=== PATIENT | male | born 1955 | race Caucasian/White ===

== ENCOUNTER 2024-04-20 15:20 | Outpatient (AMB) | payer OTHER, SELFPAY ==
[2024-04-20 15:27] VITALS: BP 112/66; PULSE 95; O2SAT 98; BMI 37.0
--- NOTE | 2024-04-20 15:27 | A.OFFPC_ITS ---
Vital Signs 04/20/24 15:27 Height 6 ft Weight 273 lb 2 oz BMI 37.0 BP 112/66 Blood Pressure Location Rt brachial Position Sitting Pulse 95 Pulse Source Pulse Oximeter Pulse Oximetry (%) 98 Oxygen Delivery Method Room Air Intake Visit Reasons: REVIEW COORDINATOR/Requesting physical Allergies No Known Allergies Allergy (Verified 04/20/24 15:30) Medication List - Last Reconciled 04/20/24 by WILSON Garcia- acetaminophen (Tylenol) 650 mg PO Q6H PRN amiodarone 200 mg PO DAILY apixaban (Eliquis) 5 mg PO BID aspirin 81 mg PO DAILY atorvastatin 80 mg PO DAILY empagliflozin (Jardiance) 10 mg PO DAILY furosemide 40 mg PO DAILY losartan 25 mg PO DAILY magnesium aspartate HCl mg PO metoprolol succinate ER 12.5 mg PO DAILY spironolactone 25 mg PO DAILY Tobacco use date assessed: 04/20/24 Fall risk assessment: 1 Fall in past year Last assessed Fall Risk: 04/20/24 Dental Screening Dental Screen Date: 04/20/24 Did you have a dental visit in the last 12 months?: No Did you have a dental problem in the last 6 months where you did not have access to dental care?: No Was dental information given to patient?: No HPI REVIEW COORDINATOR/Requesting physical HPI Details New pt is here to establish care. Pt currently has a wound vac to his left foot that is managed through a facility. He has antibiotics through his PICC line. Pt has wound vac dressing changes as well. He is seeing his surgeon tomorrow. Pt was found to have a large left supraclavicular mass. He needs a referral to oncology for further workup/PET scans/etc, will refer to requested provider. Denies dysphagia, SOB, CP. Pt also has a hx of CABG x4. 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 Pt is from the [facility] area. Pt reports never having a colon screen, will order cologuard. Pt does have a family hx of colon cancer (father). Pt is a diabetic, on an ARB and a statin. A1C in office today is 6.2. Due for microalbumin. Denies polyuria, polydipsia, does report intermittent neuropathy. Pt denies any signs and symptoms of hypoglycemia and does know how to correct it. Will refer to podiatry. Due for PSA, will order. Denies dribbling with urination, weak stream, and frequent nocturia. [facility] Social History Housing: House Patient Tobacco Use Status: Never used Tobacco e-Cigarette/Vaping Use: Never Used service: No Current occupational status: unemployed Cognitive needs: No Hearing needs: No Vision needs: Yes Questionnaire PHQ-9 Over the last 2 weeks, how often have you been bothered by any of the following problems? 1. Little interest or pleasure in doing things: not at all 2. Feeling down, depressed, or hopeless: not at all 3. Trouble falling or staying asleep, or sleeping too much: not at all 4. Feeling tired or having little energy: several days 5. Poor appetite or overeating: not at all 6. Feeling bad about yourself - or that you are a failure or have let yourself or your family down: not at all 7. Trouble concentrating on things, such as reading the newspaper or watching television: not at all 8. Moving or speaking so slowly that other people could have noticed. Or the opposite - being so fidgety or restless that you have been moving around a lot more than usual: not at all 9. Thoughts that you would be better off or of hurting yourself in some way: not at all Total score: 1 Depression Screening Interpretation: Negative Depression Screening Done: Yes 16511 - PHQ-9 Billing: Yes Source: Developed by Drs. Noel Dye, Mehreen Gandhi, Uriel Stephens and colleagues, with an educational lore from [employer]. Thrive Questionnaire Date Thrive assessed: 04/20/24 I am a: Patient What is your living situation today?: I have a steady place to live Within the past 12 months, did the food you bought not last and you didn't have the money to get more?: Never true Within the past 12 months, did you worry whether your food would run out before you got money to buy more?: Never true Do you have trouble paying for medicines?: No Do you have trouble getting transportation to medical appointments?: No Do you have trouble paying your heating and electricity bill?: No Do you have trouble taking care of your child, family member or friend?: No Do you have trouble with day-to-day activities such as bathing, preparing meals, shopping, managing finances, etc.?: No Are you currently unemployed and looking for a job?: No Are you interested in more education?: No Please select the resources that you would like help with: Housing/Assisted and Transportation Currently or been in a relationship where the following occur: No concerns reported THRIVE Score: 0 AUDIT C Alcohol Use Questionnaire (AUDIT-C) 1. How often do you have a drink containing alcohol?: 2-4 times a month 2. How many drinks containing alcohol do you have on a typical day when you are drinking?: 3 or 4 3. How often do you have six or more drinks on one occasion?: Never Total Score: 3 Score Reviewed/Action Taken: Yes MAIKEL-7 AMB Questionnaire MAIKEL-7 Date MAIKEL - 7 assessed: 04/20/24 Feeling nervous, anxious, or on edge: 0 = Not at all Not being able to stop or control worryin = Not at all Worrying too much about different things: 0 = Not at all Trouble relaxin = Not at all Being so restless that it is hard to sit still: 0 = Not at all Becoming easily annoyed or irritable: 0 = Not at all Feeling afraid as if something awful might happen: 0 = Not at all Total MAIKEL-7 score (0-4 normal; 5-9 mild; 10-14 moderate; 15-21 severe): 0 Source: Developed by Drs. Noel Dye, Mehreen Gandhi, Uriel Stephens and colleagues, with an educational lore from [employer]. MAIKEL-7 Assessment Billing MAIKEL-7 Assessment Tool: MAIKEL-7 Assessment 94792 Review of Systems Const Reports as per HPI Physical exam (Primary Care) Vital Signs: Last Vital Signs Pulse 95 04/20/24 15:27 BP 112/66 04/20/24 15:27 Pulse Ox 98 04/20/24 15:27 Oxygen Delivery Method Room Air 04/20/24 15:27 BMI result Body Mass Index 37.0 Tobacco/Smoking Status: Tobacco use Status Tobacco use date assessed 04/20/24 04/20/24 15:37 Patient Tobacco Use Status Never used Tobacco 04/20/24 15:37 e-Cigarette/Vaping Use Never Used 04/20/24 15:37 PHQ-9: PHQ-9 Score PHQ-9: Total score 1 04/20/24 15:52 Depression Screening Interpretation: Negative Thrive Assessment: Date of Thrive Assessment Date Thrive assessed 04/20/24 04/20/24 15:37 Currently or been in a relationship where the following occur: No concerns reported Const General: cooperative Nutritional Appearance: obese Orientation/consciousness: patient oriented x3 Neck Other: large indurated mass from left anterior neck to supraclavicular region. Nontender with touch Resp Other: lungs fairly clear Effort & Inspection: normal respiratory effort Cardio Rate: regular rate Rhythm: regular rhythm Heart sounds: S1 normal heart sound present, S2 normal heart sound present and Murmur heart sound present systolic (faint) Neuro General: patient oriented x3 Extrem Other: wound vac to left foot draining SS drainage, amputated right 1st and 5th toes, weak right dorsalis pedis pulse, onychomycosis to right foot, + sensation with use of monofilament to right foot, dressing to RUE PICC Psych Appearance: grossly normal Mental Status: mental status grossly normal Speech and movement: Normal speech and movement present Affect: normal affect Attitude: cooperative Thought process: Normal thought process present Thought content: Normal thought content present Insight: Good insight present (Psych) Judgement: Good judgement present (Psych) Assessment and Plan Assessment & Plan (1) Supraclavicular mass: Code(s): R22.2 - Localized swelling, mass and lump, trunk Plan: Referred to oncology (2) S/P CABG x 4: Code(s): Z95.1 - Presence of aortocoronary bypass graft Plan: Referred to cardiology (3) Diabetes: Code(s): E11.9 - Type 2 diabetes mellitus without complications Plan The patient agreed to the use of a neuropsychology medical consultant for this encounter. Scribed for ISABEL Doyle by Dana Coronel neuropsychology medical consultant, on 04/20/2024 at 15:55 EST. Orders: Orders Complete Blood Count Auto Diff Today Z95.1 - Presence of aortocoronary bypass graft UA CC w/rflx Micro + Cult Today Z95.1 - Presence of aortocoronary bypass graft Comprehensive [place]. Panel Fast Today Z95.1 - Presence of aortocoronary bypass graft TSH reflex Free T4 Today Z95.1 - Presence of aortocoronary bypass graft Lipid Panel Today Z95.1 - Presence of aortocoronary bypass graft Prostate Specific Antigen Scr Today Z95.1 - Presence of aortocoronary bypass graft Referrals Hematology & Oncology Referral R22.2 - Localized swelling, mass and lump, trunk Cardiology Referral Z95.1 - Presence of aortocoronary bypass graft Cologuard Test Z12.11 - Encounter for screening for malignant neoplasm of colon, Z12.12 - Encounter for screening for malignant neoplasm of rectum Podiatry Referral E11.9 - Type 2 diabetes mellitus without complications Coding Level of Care Code New Pt Level 4 (40873) Diagnoses Supraclavicular mass R22.2 S/P CABG x 4 Z95.1 Diabetes E11.9 Additional Codes MAIKEL-7 Assessment Billing - MAIKEL-7 Assessment Tool: MAIKEL-7 Assessment 95406 ([id number])
== END 2024-04-20 16:36 | disposition home or self-care (01) ==
PROVIDERS: PCP Nurse Practitioner Family; Visit Provider Nurse Practitioner Family
DX: R22.2 Localized swelling, mass and lump, trunk (principal); Z95.1 Presence of aortocoronary bypass graft; E11.9 Type 2 diabetes mellitus without complications
CPT/HCPCS: 99204

== ENCOUNTER → 2024-05-12 14:02 | Outpatient (BNV) | payer OTHER, SELFPAY | PROVIDERS: PCP Nurse Practitioner Family; Referring Provider Nurse Practitioner Family; Visit Provider Internal Medicine | DX: C76.0 Malignant neoplasm of head, face and neck (principal) | CPT/HCPCS: 99204 ==

== ENCOUNTER 2025-02-08 12:12 | Outpatient (AMB) | payer MEDICARE, MEDICAID, SELFPAY ==
--- NOTE | 2025-02-08 12:15 | A.OFFPC_ITS ---
Vital Signs 02/08/25 12:16 Height 6 ft Weight 183 lb BMI 24.8 BP 102/68 Blood Pressure Location Rt brachial Position Sitting Respiration 18 Pulse 71 Pulse Source Pulse Oximeter Temp 97.5 F Temp Source Oral Pulse Oximetry (%) 98 Oxygen Delivery Method Room Air Intake Visit Reasons: cancer diagnosed Intake Note: Pt is here today for a follow up visit. Allergies No Known Allergies Allergy (Verified 02/08/25 12:16) Tobacco use date assessed: 02/08/25 Fall risk assessment: No Falls in past year Last assessed Fall Risk: 02/08/25 Dental Screening Dental Screen Date: 04/20/24 Did you have a dental visit in the last 12 months?: No Did you have a dental problem in the last 6 months where you did not have access to dental care?: No Was dental information given to patient?: Patient has dentist HPI cancer diagnosed HPI Details Chief Complaint Follow-up for management of radiation therapy and related skin changes. 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 Recent treatment has included chemo-radiation therapy, resulting in dermatitis/burn over the left side of the neck and extending to the anterior chest. The patient undergoes regular wound care to manage radiation skin changes and reports his blood pressure is stable, within a low-normal range. He denies any acute symptoms such as dyspnea or chest discomfort, and maintains he feels quite well despite notable weight loss linked to dietary adjustment post- diagnosis. The patient has severe onychomycosis on the right foot, with elongated nails and dryness; he also has prior amputations of toes one and five on his left foot. Continued podiatric care and an eye exam referral were discussed. Social History - Accompanied by sister today. Health Maintenance - Regular wound care for radiation derma titis - Ongoing blood pressure management with cvir tech - Encouraged laboratory evaluation with future fasting labs recommended - Referral for podiatric evaluation due to onychomycosis and toenail issues - Referral for ophthalmologic evaluation Review of Systems - General: Denies fever, chills - Cardiovascular: Denies chest pain - Respiratory: Denies shortness of breat h - Neurological: Denies dizziness, headac hes - Gastrointestinal: Denies abdominal ameya n Physical Exam General: Cooperative, healthy appearing, comfortable, no acute distress and well developed Orientation: Patient oriented x3 Limitations: No limitations Head: Normal to inspection Ears: Hearing grossly normal bilaterally Nose: Normal external nose present Face and sinus: Normal facial exam Eyes: Appearance normal, both eyes and all related structures Neck: Burn to the left side of neck going down to left anterior chest, large bulky bandage clean, dry and intact Respiratory: Slightly diminished, lungs fairly clear, able to speak in complete sentences Cardiovascular: Regular rate and rhythm. Soft S1 and S2 GI: Normal to inspection. Soft to palpation and nontender Skin: Burn to the left side of neck going down to left anterior chest. Neuro: Patient oriented x3 Extremities: Severe onychomycosis noted to right side with elongated toenails, very dry feet bilaterally, left foot with amputated toes number five and number one, sensation with monofilament present Results - Labs: A1c measured at 4.7 Plan The patient will continue regular oncology follow-ups for carcinoma management and wound center care for addressing radiation dermatitis. There will be no alteration to his hypertension management plan. An appointment with a recording artist is warranted for the right foot's onychomycosis. The bandage on his dermatitis- affected area will be kept clean, dry, and intact. The importance of nutritional monitoring through protein shakes due to prior weight loss was discussed. An social insurance specialist will be involved for general health monitoring, especially in light of recent treatment and health changes. Discussion Notes I discussed with the patient the current status of his cancer treatment and the necessity to continue regular follow-up with the oncology team. We deliberated on the advantages and expectations from continued wound care to manage the radiation dermatitis. I emphasized maintaining his current hypertension medication regimen due to its effectiveness. Our conversation covered the seriousness of the onychomycosis and the importance of seeing a recording artist. Nutritional advice focused on the continued intake of protein shakes to manage significant weight loss. The referral to an social insurance specialist is intended to ensure comprehensive health care follow-up. The patient understands the plan and consents to the outlined management strategy. Patient Instructions - Continue follow-ups with the oncology team. - Keep the radiation dermatitis bandage clean and dry. - Maintain current blood pressure medica tions. - Visit a recording artist for toenail and tish t care. - Schedule an eye exam. - Follow nutritional recommendations, in cluding protein shakes. - Monitor overall health closely. [facility], [facility] Medical History Wound of right buttock Pressure ulcer of buttock Localized swelling, mass and lump, neck Gastro-esophageal reflux disease without esophagitis extermination inspector (current) use of insulin Unspecified atrial fibrillation Chronic systolic (congestive) heart failure Atherosclerotic heart disease of [place] coronary artery without angina pectoris Morbid (severe) obesity due to excess calories Osteomyelitis Surgical History Other specified postprocedural states Presence of aortocoronary bypass graft Kidney transplant status Family History Father Colon cancer Social History Household Members: Family Housing: House Patient Tobacco Use Status: Former Tobacco user Tobacco use type: Cigarette and Cigar e-Cigarette/Vaping Use: Never Used service: No Current occupational status: unemployed and retired Gender identity: Male Cognitive needs: No Hearing needs: No Vision needs: Yes Questionnaire PHQ-9 Over the last 2 weeks, how often have you been bothered by any of the following problems? 1. Little interest or pleasure in doing things: not at all 2. Feeling down, depressed, or hopeless: not at all 3. Trouble falling or staying asleep, or sleeping too much: not at all 4. Feeling tired or having little energy: not at all 5. Poor appetite or overeating: not at all 6. Feeling bad about yourself - or that you are a failure or have let yourself or your family down: not at all 7. Trouble concentrating on things, such as reading the newspaper or watching television: not at all 8. Moving or speaking so slowly that other people could have noticed. Or the opposite - being so fidgety or restless that you have been moving around a lot more than usual: not at all 9. Thoughts that you would be better off or of hurting yourself in some way: not at all Total score: 0 Depression Screening Interpretation: Negative Depression Screening Done: Yes 56126 - PHQ-9 Billing: Yes Source: Developed by Mehreen Douglas.W. Hiram, Uriel Stephens and colleagues, with an educational lore from [employer]. Thrive Questionnaire Date Thrive assessed: 02/08/25 I am a: Patient What is your living situation today?: I have a steady place to live Within the past 12 months, did the food you bought not last and you didn't have the money to get more?: Never true Within the past 12 months, did you worry whether your food would run out before you got money to buy more?: Sometimes True Do you have trouble paying for medicines?: No Do you have trouble getting transportation to medical appointments?: Yes Do you have trouble paying your heating and electricity bill?: No Do you have trouble taking care of your child, family member or friend?: No Do you have trouble with day-to-day activities such as bathing, preparing meals, shopping, managing finances, etc.?: Yes Are you currently unemployed and looking for a job?: No Are you interested in more education?: No Please select the resources that you would like help with: Transportation Currently or been in a relationship where the following occur: I choose not to answer THRIVE Score: 2 AUDIT C Alcohol Use Questionnaire (AUDIT-C) 1. How often do you have a drink containing alcohol?: 2-4 times a month 2. How many drinks containing alcohol do you have on a typical day when you are drinking?: 1 or 2 3. How often do you have six or more drinks on one occasion?: Never Total Score: 2 MAIKEL-7 AMB Questionnaire MAIKEL-7 Date MAIKEL - 7 assessed: 02/08/25 Feeling nervous, anxious, or on edge: 0 = Not at all Not being able to stop or control worryin = Not at all Worrying too much about different things: 0 = Not at all Trouble relaxin = Several days Being so restless that it is hard to sit still: 0 = Not at all Becoming easily annoyed or irritable: 0 = Not at all Feeling afraid as if something awful might happen: 0 = Not at all Total MAIKEL-7 score (0-4 normal; 5-9 mild; 10-14 moderate; 15-21 severe): 1 Source: Developed by Drs. Noel Dye, Mehreen GandhiUriel and colleagues, with an educational lore from [employer]. MAIKEL-7 Assessment Billing MAIKEL-7 Assessment Tool: MAIKEL-7 Assessment 87053 Physical exam (Primary Care) Vital Signs: Last Vital Signs Temp 97.5 F 02/08/25 12:16 Pulse 71 02/08/25 12:16 Resp 18 02/08/25 12:16 BP 102/68 02/08/25 12:16 Pulse Ox 98 02/08/25 12:16 Oxygen Delivery Method Room Air 02/08/25 12:16 BMI result Body Mass Index 24.8 Tobacco/Smoking Status: Tobacco use Status Tobacco use date assessed 02/08/25 02/08/25 12:18 Patient Tobacco Use Status Former Tobacco user 02/08/25 12:18 Tobacco use type Cigarette,Cigar 02/08/25 12:18 e-Cigarette/Vaping Use Never Used 02/08/25 12:18 PHQ-9: PHQ-9 Score PHQ-9: Total score 0 02/08/25 12:18 Depression Screening Interpretation: Negative Thrive Assessment: Date of Thrive Assessment Date Thrive assessed 02/08/25 02/08/25 12:18 Currently or been in a relationship where the following occur: I choose not to answer Results AMB Hemoglobin A1c AMB Hemoglobin A1c 4.7 % Last Edit by LEVAR Henderson on 02/08/25 12:3 9 Results Reviewed Results Reviewed: Laboratory Last Values Hgb A1c (Clinic) 4.7 % (4.0-6.0) 02/08/25 12:29 Coding Level of Care Code Est Pt Level 4 (68701) Diagnoses Diabetes E11.9 Head and neck cancer C76.0 Additional Codes MAIKEL-7 Assessment Billing - MAIKEL-7 Assessment Tool: MAIKEL-7 Assessment 34992 ( [id number]) PHQ-9 - 91575 - PHQ-9 Billing: Yes ([id number]) Assessment & Plan Assessment & Plan (1) Diabetes: Code(s): E11.9 - Type 2 diabetes mellitus without complications Category: Medical (2) Head and neck cancer: Code(s): C76.0 - Malignant neoplasm of head, face and neck Category: Medical Plan . Orders: Orders AMB Hemoglobin A1c Today Z13.9 - Encounter for screening, unspecified Referrals Podiatry Referral E11.9 - Type 2 diabetes mellitus without complications Ophthalmology Referral E11.9 - Type 2 diabetes mellitus without complications
[2025-02-08 12:16] VITALS: BP 102/68; PULSE 71; RESP 18; TEMP 36.4; O2SAT 98; BMI 24.8
--- OUTSIDE RECORDS SUMMARY | 2025-02-08 13:07 | XMS_ITS | Encounter Summary ---
Author Organization [facility] Address [address] [place] [address] Care Team Providers Care Airport Traffic Controller Name Role Phone [facility] Rae White RN Unavailable [phone] Beau Hurt MD Primary Care Provider [phone] Encounter Details Date Type Department Care Team (Late st Contact Info) Description 02/08/2025 Scanned Document [facility] Cancer [place] Medical Oncology at [address] [address] Beau Hurt MD [address] [place] [phone] Social History Tobacco Use Types Packs/Day Years Used Date Smoking Tobacco: Former Cigarettes Alcohol Use Standard Drinks/Week Comments Yes 0 (1 standard drink = 0.6 oz pur e alcohol) [facility] Utilities Answer Date Recorded In the past 12 months has [employer], gas, oil, or water [employer] threatened to shut off services in your home? No 11/10/2024 AUDIT-C Answer Date Recorded Q1: How often do you have a drink containing alcohol? Never 11/10/2024 Q2: How many drinks containi ng alcohol do you have on a typical day when you are drinking? Patient does not drink Q3: How often do you have si x or more drinks on one occasion? Never 11/10/2024 Overall Financial Resource Strain (CARDIA) Answe r Date Recorded How hard is it for you to pa y for the very basics like food, housing, medical care, and heating? Not hard at all 11/10/2024 PHQ-2 Answer Date Recorded PHQ-2 Total Score 1 05/31/2024 Hunger Vital Sign Answer Date Recorded Within the past 12 months, y ou worried that your food would run out before you got the money to buy more. Never true 11/10/19 25 Within the past 12 months, t he food you bought just didn't last and you didn't have money to get more. Never true 11/10/2024 PRAPARE - Transportation Answer Date Re corded In the past 12 months, has l ack of transportation kept you from medical appointments or from getting medications? No 10/28 In the past 12 months, has l ack of transportation kept you from meetings, work, or from getting things needed for daily living? No 11/10/2024 Housing Stability Vital Sign Answer Cornelio e Recorded In the last 12 months, was t here a time when you were not able to pay the mortgage or rent on time? No 11/10/2024 In the past 12 months, how m any times have you moved where you were living? 0 11/10/2024 At any time in the past 12 m [facility], were you homeless or living in a long term (including now)? No 11/10/2024 Sex and Gender Information Value Date Recorded Sex Assigned at Male 06/12/2024 10:57 AM EDT Legal Sex Male 10:53 AM EDT Gender Identity Male 06/12/2024 10:57 AM EDT Sexual Orientation Heterosexual (straight) 06/12 10:57 AM EDT documented as of this encounter Plan of Treatment Upcoming Encounters Date Type Department Care Team (Late st Contact Info) Description 02/09/2025 2:40 PM EDT Hospital Encounter [address] [address] Kayla Escobar, COMPUTER PROGRAMMING PROFESSOR [address] [place] [address] 02/09/2025 2:50 PM EDT Appointment [facility] [address] [place] [address] Kayla Escobar, COMPUTER PROGRAMMING PROFESSOR [address] [place], [place] [phone] 02/16/2025 9:45 AM EDT Office Visit [facility] Medical Oncology at [address] [phone] Sherita Khan, COMPUTER PROGRAMMING PROFESSOR [address] [place], [place] [phone] 02/16/2025 10:30 AM EDT Infusion [facility] Cancer [place] at [facility] [address] [phone] Beau Hurt MD [address] [place], [place] [phone] documented as of this encounter Goals Goal Patient Goal Type Associated Problems Recent Progress Patient-Stated? Author ST LTG 1 Speech Therapy No Arlen Valenzuela CCC-PARTS SALES MANAGER Note: The patient will tolerate a least restrictive diet to maintain oral nutrition throughout radiation therapy. ST STG 1 Speech Therapy No Arlen Valenzuela CCC-PARTS SALES MANAGER Note: The patient will complete pharyngeal strengthening exercises: supraglottic swallow, alma maneuver, effortful swallow to improve tongue base retraction, hyolaryngeal excursion, airway protection, and clearance of the bolus through the pharynx with 100% accuracy in 5/[address]G 2 Speech Therapy No Arlen Valenzuela CCC-PARTS SALES MANAGER Note: The patient will complete lingual strengthening/resistance, lingual elevation and depression, lingual lateralization, mandibular range of motion, and labial strengthening exercises throughout radiation therapy to ensure functional strength and range of motion of oral cavity structures to maintain functional diet tolerance. The patient will complete 6/6 exercises with 100% accuracy. ST STG 3 Speech Therapy Arlen Cordero, CHIN-PARTS SALES MANAGER Note: The patient will demonstrate basic knowledge on oral hygiene, xerostomia management, and dysgluesia and implement recommended strategies in his daily routine to improve oral intake to maintain oral nutrition throughout radiation therapy. documented as of this encounter Visit Diagnoses Not on filedocumented in this encounter Care Teams Airport Traffic Controller Relationship Specialty Start Date End Date Beau Hurt MD [address] [place] [address] PCP - General Medical Oncology 11/10/24 Rae Martin RN [address] [place] [address] Oncology Nurse Navigator 05/19/24 documented as of this encounter
--- OUTSIDE RECORDS SUMMARY | 2025-02-08 13:07 | XMS_ITS | Encounter Summary ---
Author Organization [facility] Address [address] [place] [address] Care Team Providers Care Epic Manager Name Role Phone [facility] Rae White RN Unavailable [phone] Beau Hurt MD Primary Care Provider [phone] Encounter Details Date Type Department Care Team (Late st Contact Info) Description 12/12/2024 Scanned Document [facility] Cancer [place] Medical Oncology at [address] [address] Beau Hurt MD [address] [place] [phone] Social History Tobacco Use Types Packs/Day Years Used Date Smoking Tobacco: Former Cigarettes Alcohol Use Standard Drinks/Week Comments Yes 0 (1 standard drink = 0.6 oz pur e alcohol) [facility] Utilities Answer Date Recorded In the past 12 months has [employer], gas, oil, or water [employer] threatened to shut off services in your [...] any time in the past [address] [facility], were you homeless or living in a longterm (including now)? No 11/10/2024 Sex and Gender [...] Description 02/09/2025 2:40 PM EDT Hospital Encounter [address] [address] Kayla Escobar, PROPOSAL ENGINEER [address] [place] [address] 02/09/2025 2:50 PM EDT Appointment [facility] [address] [place] [address] Kayla Escobar, PROPOSAL ENGINEER [address] [place], [place] [phone] 02/16/2025 9:45 AM EDT Office Visit [facility] Medical Oncology at [address] [phone] Sherita Khan, PROPOSAL ENGINEER [address] [place], [place] [phone] 02/16/2025 10:30 AM EDT Infusion [facility] Cancer [place] at [facility] [address] [phone] Beau Hurt MD [address] [place], [place] [phone] documented as of this encounter Goals Goal Patient Goal Type Associated Problems Recent Progress Patient-Stated? Author ST LTG 1 Speech Therapy No Arlen Valenzuela CCC-STONE FABRICATOR Note: The patient will tolerate a least restrictive diet to maintain oral nutrition throughout radiation therapy. ST STG 1 Speech Therapy No Arlen Valenzuela CCC-STONE FABRICATOR Note: The patient will complete pharyngeal strengthening exercises: supraglottic swallow, alma maneuver, effortful swallow to improve tongue base retraction, hyolaryngeal excursion, airway protection, and clearance of the bolus through the pharynx with 100% accuracy in 5/[address]G 2 Speech Therapy No Arlen Valenzuela CCC-STONE FABRICATOR Note: The patient will complete lingual strengthening/resistance, lingual elevation and depression, lingual lateralization, mandibular range of motion, and labial strengthening exercises throughout radiation therapy to ensure functional strength and range of motion of oral cavity structures to maintain functional diet tolerance. The patient will complete 6/6 exercises with 100% accuracy. ST STG 3 Speech Therapy Arlen Cordero, CHIN-STONE FABRICATOR Note: The patient will demonstrate basic knowledge on oral hygiene, xerostomia management, and dysgluesia and implement recommended strategies in his daily routine to improve oral intake to maintain oral nutrition throughout radiation therapy. documented as of this encounter Visit Diagnoses Not on filedocumented in this encounter Care Teams Epic Manager Relationship Specialty Start Date End Date Beau Hurt MD [address] [place] [address] PCP - General Medical Oncology 11/10/24 Rae Martin RN [address] [place] [address] Oncology Nurse Navigator 05/19/24 documented as of this encounter
--- OUTSIDE RECORDS SUMMARY | 2025-02-08 13:07 | XMS_ITS | Encounter Summary ---
Author Organization [facility] Address [address] [place] [address] Care Team Providers Care Smoking Tobacco Packing Machine Hand Name Role Phone Rae Machado RN Unavailable [phone] Beau Hurt MD Primary Care Provider [phone] Encounter Details Date Type Department Care Team (Late st Contact Info) Description 12/21/2024 Scanned Document [facility] ONCOLOGY SCAN Oncology, Scan Social History Tobacco Use Types Packs/Day Years Used Date Smoking Tobacco: Former Cigarettes Alcohol Use Standard Drinks/Week Comments Yes 0 (1 standard drink = 0.6 oz pur e alcohol) [facility] Utilities Answer Date Recorded In the past 12 months has e electric, gas, oil, or water company threatened to shut off services in your [...] any time in the past 12 m [facility], were you homeless or living in a alf (including now)? No 11/10/2024 Sex and Gender [...] Description 02/09/2025 2:40 PM EDT Hospital Encounter [address] [phone] Kayla Escobar, RUBINA [address] [place] [address] 02/09/2025 2:50 PM EDT Appointment [address] [phone] Kayla Escobar APRN [address] [place] [address] 02/16/2025 9:45 AM EDT Office Visit [facility] Medical Oncology at [facility] [address] [place] [phone] Sherita Khan APRN [address] [place] [address] 02/16/2025 10:30 AM EDT Infusion [facility] Cancer [place] at [facility] [place] [address] [place] [address] Beau Hurt MD [address] [place], [place] [phone] documented as of this encounter Goals Goal Patient Goal Type Associated Problems Recent Progress Patient-Stated? Author ST LTG 1 Speech Therapy No Arlen Valenzuela CCC-YOLIS Note: The patient will tolerate a least restrictive diet to maintain oral nutrition throughout radiation therapy. ST STG 1 Speech Therapy No Arlen Valenzuela CCC-NETWORK ACCOUNT MANAGER Note: The patient will complete pharyngeal strengthening exercises: supraglottic swallow, alma maneuver, effortful swallow to improve tongue base retraction, hyolaryngeal excursion, airway protection, and clearance of the bolus through the pharynx with 100% accuracy in 5/[address]G 2 Speech Therapy No Arlen Valenzuela CCC-NETWORK ACCOUNT MANAGER Note: The patient will complete lingual strengthening/resistance, lingual elevation and depression, lingual lateralization, mandibular range of motion, and labial strengthening exercises throughout radiation therapy to ensure functional strength and range of motion of oral cavity structures to maintain functional diet tolerance. The patient will complete 6/6 exercises with 100% accuracy. ST STG 3 Speech Therapy No Arlen Valenzuela CCC-NETWORK ACCOUNT MANAGER Note: The patient will demonstrate basic knowledge on oral hygiene, xerostomia management, and dysgluesia and implement recommended strategies in his daily routine to improve oral intake to maintain oral nutrition throughout radiation therapy. documented as of this encounter Visit Diagnoses Not on filedocumented in this encounter Care Teams Smoking Tobacco Packing Machine Hand Relationship Specialty Start Date End Date Beau Hurt MD [address] [place], [place] [phone] PCP - General Medical Oncology 11/10/24 Rae Martin RN [address] [place], [place] [phone] Oncology Nurse Navigator 05/19/24 documented as of this encounter
--- OUTSIDE RECORDS SUMMARY | 2025-02-08 13:07 | XMS_ITS | Encounter Summary ---
Author Organization [facility] Address [address] [place] [address] Care Team Providers Care Golf Sales Manager Name Role Phone Jonn Jain MD Primary Care Provider [phone] [facility] Rae Machado RN Unavailable [phone] Pcp, No Primary Care Provider UnavailBeau Nguyen MD Primary Care Provider [phone] Encounter Details Date Type Department Care Team (Late st Contact Info) Description 08/30/2024 Scanned Document [facility] Radiation Oncology [address] [place] [phone] Provider, Generic Social History Tobacco Use Types Packs/Day Years Used Date Smoking Tobacco: Former Cigarettes Alcohol Use Standard Drinks/Week Comments Yes 0 (1 standard drink = 0.6 oz pur e alcohol) AUDIT-C Answer Date Recorded Q1: How often do you have a drink containing alcohol? Never 08/18/2024 Q2: How many drinks containi ng alcohol do you have on a typical day when you are drinking? Patient does not drink Q3: How often do you have si x or more drinks on one occasion? Never 08/18/2024 Overall Financial Resource Strain (CARDIA) Answe r Date Recorded How hard is it for you to pa y for the very basics like food, housing, medical care, and heating? Not hard at all 05/24/2024 PHQ-2 Answer Date Recorded PHQ-2 Total Score 1 05/31/2024 Sex and Gender Information Value Date Recorded Sex Assigned at Male 06/12/2024 10:57 AM EDT Legal Sex Male 10:53 AM EDT Gender Identity Male 06/12/2024 10:57 AM EDT Sexual Orientation Heterosexual (straight) 06/12 10:57 AM EDT documented as of this encounter Plan of Treatment Upcoming Encounters Date Type Department Care Team (Late st Contact Info) Description 02/09/2025 2:40 PM EDT Hospital Encounter [address] [phone] Kayla Escobar, NAIL STICKER [address] [place] [address] 02/09/2025 2:50 PM EDT Appointment [address] [address] Kayla Escobar, NAIL STICKER [address] [place] [address] 02/16/2025 9:45 AM EDT Office Visit [facility] Medical Oncology at [address] [phone] Sherita Khan, NAIL STICKER [address] [place] [address] 02/16/2025 10:30 AM EDT Infusion [facility] Cancer [place] at Outpatient Infusion [address] [phone] Beau Hurt MD [address] [place] [address] documented as of this encounter Goals Goal Patient Goal Type Associated Problems Recent Progress Patient-Stated? Author ST LTG 1 Speech Therapy Arlen Cordero CCC-ELECTRICIAN AIRCRAFT Note: The patient will tolerate a least restrictive diet to maintain oral nutrition throughout radiation therapy. ST STG 1 Speech Therapy No Arlen Valenzuela CCC-SLP Note: The patient will complete pharyngeal strengthening exercises: supraglottic swallow, alma maneuver, effortful swallow to improve tongue base retraction, hyolaryngeal excursion, airway protection, and clearance of the bolus through the pharynx with 100% accuracy in 5/[address]G 2 Speech Therapy No Arlen Valenzuela CCC-SLP Note: The patient will complete lingual strengthening/resistance, lingual elevation and depression, lingual lateralization, mandibular range of motion, and labial strengthening exercises throughout radiation therapy to ensure functional strength and range of motion of oral cavity structures to maintain functional diet tolerance. The patient will complete 6/6 exercises with 100% accuracy. ST STG 3 Speech Therapy No Arlen Valenzuela CCC-SLP Note: The patient will demonstrate basic knowledge on oral hygiene, xerostomia management, and dysgluesia and implement recommended strategies in his daily routine to improve oral intake to maintain oral nutrition throughout radiation therapy. documented as of this encounter Visit Diagnoses Not on filedocumented in this encounter Care Teams Golf Sales Manager Relationship Specialty Start Date End Date Jonn Jain MD [address] [place] [address] PCP - General Family Medicine 05/18/24 10/30/24 Pcp, No PCP - General 10/31/24 11/09/24 Beau Hurt MD [address] [place], [place] [phone] PCP - General Medical Oncology 11/10/24 Rae Martin RN [address] [place] [address] Oncology Nurse Navigator 05/19/24 documented as of this encounter
--- OUTSIDE RECORDS SUMMARY | 2025-02-08 13:07 | XMS_ITS | Encounter Summary ---
Author Organization [facility] Address [address] [place] [address] Care Team Providers Care Glue Maker Name Role Phone Rae Machado RN Unavailable [phone] Beau Hurt MD Primary Care Provider [phone] Encounter Details Date Type Department Care Team (Late st Contact Info) Description 02/06/2025 Orders Only [facility] Cancer [place] Medical Oncology at [address] [phone] Oncology, Scan Social History Tobacco Use Types Packs/Day Years Used Date Smoking Tobacco: Former Cigarettes Alcohol Use Standard Drinks/Week Comments Yes 0 (1 standard drink = 0.6 oz pur e alcohol) [facility] Utilities Answer Date Recorded In the past 12 months has [employer], gas, oil, or water [employer] threatened to shut off services in your [...] any time in the past 12 m [facility], were you homeless or living in a [...] Description 02/09/2025 2:40 PM EDT Hospital Encounter [facility] [address] [place] [phone] Kayla Escobar APRN [address] [place] [address] 02/09/2025 2:50 PM EDT Appointment [address] [address] Kayla Escobar APRN [address] [place] [address] 02/16/2025 9:45 AM EDT Office Visit [facility] Medical Oncology at [address] [place] [address] Sherita Khan APRN [address] [place], [place] [phone] 02/16/2025 10:30 AM EDT Infusion [facility] Cancer [place] at [facility] [address] [place] [phone] Beau Hurt MD [address] [place], [place] [phone] documented as of this encounter Goals Goal Patient Goal Type Associated Problems Recent Progress Patient-Stated? Author ST LTG 1 Speech Therapy No Arlen Valenzuela CCC-YOLIS Note: The patient will tolerate a least restrictive diet to maintain oral nutrition throughout radiation therapy. ST STG 1 Speech Therapy No Arlen Valenzuela CCC-YOLIS Note: The patient will complete pharyngeal strengthening [...] STG 3 Speech Therapy No Arlen Valenzuela CCC-CUTTING MACHINE TENDER Note: The patient will demonstrate basic knowledge on oral hygiene, xerostomia management, and dysgluesia and implement recommended strategies in his daily routine to improve oral intake to maintain oral nutrition throughout radiation therapy. documented as of this encounter Procedures Procedure Name Priority Date/Time Associated Diagnosis Comments HOME CARE SIGNED ORDERS Routine 02/06/2025 3:59 PM EDT HOME CARE SIGNED ORDERS Routine 02/06/2025 3:52 PM EDT documented in this encounter Results * HOME CARE SIGNED ORDERS (02/06/2025 3:59 PM EDT) us Scan Oncology HX AMB PROCEDURES NO RESULTS ROU TING Final Result * HOME CARE SIGNED ORDERS (02/06/2025 3:52 PM EDT) us Scan Oncology HX AMB PROCEDURES NO RESULTS ROU TING Final Result documented in this encounter Visit Diagnoses Not on filedocumented in this encounter Care Teams Glue Maker Relationship Specialty Start Date End Date Beau Hurt MD [address] [place] [address] PCP - General Medical Oncology 11/10/24 Rae Martin RN [address] [place] [phone] Oncology Nurse Navigator 05/19/24 documented as of this encounter
--- OUTSIDE RECORDS SUMMARY | 2025-02-08 13:07 | XMS_ITS | Encounter Summary ---
Author Organization [facility] Address [address] [place] [address] Care Team Providers Care Physician Credentialing Specialist Name Role Phone [facility] Rae White RN Unavailable [phone] Beau Hurt MD Primary Care Provider [phone] Encounter Details Date Type Department Care Team (Late st Contact Info) Description 01/29/2025 Scanned Document [facility] Cancer [place] Medical Oncology at [address] [phone] Beau Hurt MD [address] [place] [phone] Social History Tobacco Use Types Packs/Day Years Used Date Smoking Tobacco: Former Cigarettes Alcohol Use Standard Drinks/Week Comments Yes 0 (1 standard drink = 0.6 oz pur e alcohol) [facility] Utilities Answer Date Recorded In the past 12 months has [employer], gas, oil, or water [employer] threatened to shut off services in your [...] any time in the past 12 m [facility], were you homeless or living in a chcf (including now)? No 11/10/2024 Sex and Gender [...] Description 02/09/2025 2:40 PM EDT Hospital Encounter [address] [address] Kayla Escobar, TRACK SWEEPER [address] [place] [address] 02/09/2025 2:50 PM EDT Appointment [facility] [address] [place] [address] Kayla Escobar, TRACK SWEEPER [address] [place], [place] [phone] 02/16/2025 9:45 AM EDT Office Visit [facility] Medical Oncology at [address] [phone] Sherita Khan, TRACK SWEEPER [address] [place], [place] [phone] 02/16/2025 10:30 AM EDT Infusion [facility] Cancer [place] at [facility] [address] [phone] Beau Hurt MD [address] [place], [place] [phone] documented as of this encounter Goals Goal Patient Goal Type Associated Problems Recent Progress Patient-Stated? Author ST LTG 1 Speech Therapy No Arlen Valenzuela CCC-DELIVERY DRIVER/SUPERVISOR Note: The patient will tolerate a least restrictive diet to maintain oral nutrition throughout radiation therapy. ST STG 1 Speech Therapy No Arlen Valenzuela CCC-DELIVERY DRIVER/SUPERVISOR Note: The patient will complete pharyngeal strengthening exercises: supraglottic swallow, alma maneuver, effortful swallow to improve tongue base retraction, hyolaryngeal excursion, airway protection, and clearance of the bolus through the pharynx with 100% accuracy in 5/[address]G 2 Speech Therapy No Arlen Valenzuela CCC-DELIVERY DRIVER/SUPERVISOR Note: The patient will complete lingual strengthening/resistance, lingual elevation and depression, lingual lateralization, mandibular range of motion, and labial strengthening exercises throughout radiation therapy to ensure functional strength and range of motion of oral cavity structures to maintain functional diet tolerance. The patient will complete 6/6 exercises with 100% accuracy. ST STG 3 Speech Therapy Arlen Cordero, CHIN-DELIVERY DRIVER/SUPERVISOR Note: The patient will demonstrate basic knowledge on oral hygiene, xerostomia management, and dysgluesia and implement recommended strategies in his daily routine to improve oral intake to maintain oral nutrition throughout radiation therapy. documented as of this encounter Visit Diagnoses Not on filedocumented in this encounter Care Teams Physician Credentialing Specialist Relationship Specialty Start Date End Date Beau Hurt MD [address] [place] [address] PCP - General Medical Oncology 11/10/24 Rae Martin RN [address] [place] [address] Oncology Nurse Navigator 05/19/24 documented as of this encounter
--- OUTSIDE RECORDS SUMMARY | 2025-02-08 13:07 | XMS_ITS | Encounter Summary ---
Author Organization [facility] Address [address] [place] [address] Care Team Providers Care Environmental Engineering Assistant Name Role Phone [facility] Rae White RN Unavailable [phone] Beau Hurt MD Primary Care Provider [phone] Encounter Details Date Type Department Care Team (Late st Contact Info) Description 12/08/2024 Scanned Document [facility] [place] Medical Oncology at [address] [address] Beau Hurt MD [address] [place] [phone] Social History Tobacco Use Types Packs/Day Years Used Date Smoking Tobacco: Former Cigarettes Alcohol Use Standard Drinks/Week Comments Yes 0 (1 standard drink = 0.6 oz pur e alcohol) [facility] Utilities Answer Date Recorded In the past 12 months has [employer], gas, oil, or water [employer] threatened to shut off services in your [...] No 11/10/2024 Housing Stability Vital Sign Answer Ocrnelio e Recorded In the last 12 months, was t here a time when you were not able to pay the mortgage or rent on time? No 11/10/2024 In the past 12 months, how m any times have you moved where you were living? 0 11/10/2024 At any time in the past 12 m [facility], were you homeless or living in a halfway (including now)? No 11/10/2024 Sex and Gender [...] Description 02/09/2025 2:40 PM EDT Hospital Encounter [address] [phone] Kayla Escobar, ROPE MAKING MACHINE OPERATOR [address] [place] [address] 02/09/2025 2:50 PM EDT Appointment [facility] [address] [place] [address] Kayla Escobar, ROPE MAKING MACHINE OPERATOR [address] [place], [place] [id number] 02/16/2025 9:45 AM EDT Office Visit [facility] Medical Oncology at [address] [phone] Sherita Khan, ROPE MAKING MACHINE OPERATOR [address] [place], [place] [id number] 02/16/2025 10:30 AM EDT Infusion [facility] [place] at [facility] Outpatient Infusion Center [address] [phone] Beau Hurt MD [address] [place], [place] [id number] documented as of this encounter Goals Goal Patient Goal Type Associated Problems Recent Progress Patient-Stated? Author ST LTG 1 Speech Therapy No Arlen Valenzuela CCC-SPRING WINDER Note: The patient will tolerate a least restrictive diet to maintain oral nutrition throughout radiation therapy. ST STG 1 Speech Therapy No Arlen Valenzuela CCC-SPRING WINDER Note: The patient will complete pharyngeal strengthening exercises: supraglottic swallow, alma maneuver, effortful swallow to improve tongue base retraction, hyolaryngeal excursion, airway protection, and clearance of the bolus through the pharynx with 100% accuracy in 5/[address]G 2 Speech Therapy No Arlen Valenzuela CCC-SPRING WINDER Note: The patient will complete lingual strengthening/resistance, lingual elevation and depression, lingual lateralization, mandibular range of motion, and labial strengthening exercises throughout radiation therapy to ensure functional strength and range of motion of oral cavity structures to maintain functional diet tolerance. The patient will complete 6/6 exercises with 100% accuracy. ST STG 3 Speech Therapy Arlen Cordero, CHIN-SPRING WINDER Note: The patient will demonstrate basic knowledge on oral hygiene, xerostomia management, and dysgluesia and implement recommended strategies in his daily routine to improve oral intake to maintain oral nutrition throughout radiation therapy. documented as of this encounter Visit Diagnoses Not on filedocumented in this encounter Care Teams Environmental Engineering Assistant Relationship Specialty Start Date End Date eBau Hurt MD [address] [place] [address] PCP - General Medical Oncology 11/10/24 Rae Martin RN [address] [place] [address] Oncology Nurse Navigator 05/19/24 documented as of this encounter
--- OUTSIDE RECORDS SUMMARY | 2025-02-08 13:07 | XMS_ITS | Encounter Summary ---
Author Organization [facility] Address [address] [place] [address] Care Team Providers Care Golf Tournament Consultant Name Role Phone Jonn Jain MD Primary Care Provider [phone] [facility] Rae Machado RN Unavailable [phone] Pcp, No Primary Care Provider Unavailabl e Beau Hurt MD Primary Care Provider [phone] Encounter Details Date Type Department Care Team (Late st Contact Info) Description 06/06/2024 Telephone [facility] Cancer [place] Medical Oncology at [address] [address] Beau Hurt MD [address] [place] [phone] Social History Tobacco Use Types Packs/Day Years Used Date Smoking Tobacco: Former Cigarettes Alcohol Use Standard Drinks/Week Comments Yes 0 (1 standard drink = 0.6 oz pur e alcohol) AUDIT-C Answer Date Recorded Q1: How often do you have a drink containing alc ohol? 2-3 times a week 05/31/2024 Q2: How many drinks containi ng alcohol do you have on a typical day when you are drinking? 3 or 4 05/31/2024 Q3: How often do you have si x or more drinks on one occasion? Never 05/31/2024 Overall Financial Resource Strain (CARDIA) Answe r [...] Description 02/09/2025 2:40 PM EDT Hospital Encounter [address] [address] Kayla Escobar, RUBINA [address] [place] [address] 02/09/2025 2:50 PM EDT Appointment [address] [phone] Kayla Escobar APRN [address] [place] [address] 02/16/2025 9:45 AM EDT Office Visit [facility] Medical Oncology at [address] [phone] Sherita Khan APRN [address] [place] [address] 02/16/2025 10:30 AM EDT Infusion [facility] Cancer [place] at [facility] Outpatient Infusion [address] [phone] Beau Hurt MD [address] [place] [address] documented as of this encounter Visit Diagnoses Not on filedocumented in this encounter Additional Health Concerns Infection Onset Date Last Indicated Resolved Time R/O Respiratory Disease 08/17/2024 08/17/202407/29 12:52 AM EST documented as of this encounter Care Teams Golf Tournament Consultant Relationship Specialty Start Date End Date Jonn Jain MD [address] [place] [address] PCP - General Family Medicine 05/18/24 10/30/24 Pcp, No PCP - General 10/31/24 11/09/24 Beau Hurt MD [address] [place] [address] PCP - General Medical Oncology 11/10/24 Rae Martin RN 85 [place], [place] [phone] Oncology Nurse Navigator 05/19/24 documented as of this encounter
--- OUTSIDE RECORDS SUMMARY | 2025-02-08 13:07 | XMS_ITS | Encounter Summary ---
Author Organization [facility] Address [address] [place] [address] Care Team Providers Care Automatic Lathe Tender Name Role Phone Rae Machado RN Unavailable [phone] Beau Hurt MD Primary Care Provider [phone] Encounter Details Date Type Department Care Team (Late st Contact Info) Description 01/10/2025 Scanned Document [facility] ONCOLOGY SCAN Oncology, Scan Social History Tobacco Use Types Packs/Day Years Used Date Smoking Tobacco: Former Cigarettes Alcohol Use Standard Drinks/Week Comments Yes 0 (1 standard drink = 0.6 oz pur e alcohol) [facility] Utilities Answer Date Recorded In [...] were you homeless or living in a half-way (including now)? No 11/10/2024 Sex and Gender [...] Description 02/09/2025 2:40 PM EDT Hospital Encounter [address] [phone] Kayla Escobar, RUBINA [address] [place] [address] 02/09/2025 2:50 PM EDT Appointment [address] [phone] Kayla Escobar APRN [address] [place] [address] 02/16/2025 9:45 AM EDT Office Visit [facility] Medical Oncology at [facility] [address] [place] [phone] Sherita Khan APRN [address] [place] [address] 02/16/2025 10:30 AM EDT Infusion [facility] Cancer [place] at [facility] Outpatient Infusion [facility] [place] [address] [place] [address] Beau Hurt MD [address] [place], [place] [phone] documented as of this encounter Goals Goal Patient Goal Type Associated Problems Recent Progress Patient-Stated? Author ST LTG 1 Speech Therapy No Arlen Valenzuela CCC-YOLIS Note: The patient will tolerate a least restrictive diet to maintain oral nutrition throughout radiation therapy. ST STG 1 Speech Therapy No Arlen Valenzuela CCC-GREENHOUSE MANAGER Note: The patient will complete pharyngeal strengthening exercises: supraglottic swallow, alma maneuver, effortful swallow to improve tongue base retraction, hyolaryngeal excursion, airway protection, and clearance of the bolus through the pharynx with 100% accuracy in 5/[address]G 2 Speech Therapy No Arlen Valenzuela CCC-GREENHOUSE MANAGER Note: The patient will complete lingual strengthening/resistance, lingual elevation and depression, lingual lateralization, mandibular range of motion, and labial strengthening exercises throughout radiation therapy to ensure functional strength and range of motion of oral cavity structures to maintain functional diet tolerance. The patient will complete 6/6 exercises with 100% accuracy. ST STG 3 Speech Therapy No Arlen Valenzuela CCC-GREENHOUSE MANAGER Note: The patient will demonstrate basic knowledge on oral hygiene, xerostomia management, and dysgluesia and implement recommended strategies in his daily routine to improve oral intake to maintain oral nutrition throughout radiation therapy. documented as of this encounter Visit Diagnoses Not on filedocumented in this encounter Care Teams Automatic Lathe Tender Relationship Specialty Start Date End Date Beau Hurt MD [address] [place], [place] [phone] PCP - General Medical Oncology 11/10/24 Rae Martin RN [address] [place], [place] [phone] Oncology Nurse Navigator 05/19/24 documented as of this encounter
--- OUTSIDE RECORDS SUMMARY | 2025-02-08 13:07 | XMS_ITS | Encounter Summary ---
Author Organization [facility] Address [address] [place] [address] Care Team Providers Care Cutter Operator Brick Name Role Phone St. BaileyRae serrano RN Unavailable [phone] eBau Hurt MD Primary Care Provider [phone] Encounter Details Date Type Department Care Team (Late st Contact Info) Description 11/20/2024 Scanned Document [facility] Cancer [place] Medical Oncology at [facility] [address] [address] [place] [address] Social History Tobacco Use Types Packs/Day Years Used Date Smoking Tobacco: Former Cigarettes Alcohol Use Standard Drinks/Week Comments Yes 0 (1 standard drink = 0.6 oz pur e alcohol) [facility] Utilities Answer Date Recorded In the past 12 months has [employer], gas, oil, or water [employer] threatened to shut off services in your [...] any time in the past 12 m [facility], were you homeless or living in a penitentiary (including now)? No 11/10/2024 Sex and Gender [...] Description 02/09/2025 2:40 PM EDT Hospital Encounter [facility] Radiology [facility] [address] [place] [phone] Kayla Escobar, RUBINA [address] [place] [address] 02/09/2025 2:50 PM EDT Appointment [facility] Radiology [facility] [address] [place] [address] Kayla Escobar APRN [address] [place] [phone] 02/16/2025 9:45 AM EDT Office Visit [facility] Medical Oncology at [address] [phone] Sherita Khan APRN [address] [place], [place] [phone] 02/16/2025 10:30 AM EDT Infusion [facility] Cancer [place] at [facility] Outpatient Infusion Center [address] [phone] Beau Hurt MD [address] [place], [place] [phone] documented as of this encounter Goals Goal Patient Goal Type Associated Problems Recent Progress Patient-Stated? Author ST LTG 1 Speech Therapy No Arlen Valenzuela CCC-RESIDENTIAL PROPERTY MANAGER Note: The patient will tolerate a least restrictive diet to maintain oral nutrition throughout radiation therapy. ST STG 1 Speech Therapy No Arlen Valenzuela CCC-RESIDENTIAL PROPERTY MANAGER Note: The patient will complete pharyngeal strengthening exercises: supraglottic swallow, alma maneuver, effortful swallow to improve tongue base retraction, hyolaryngeal excursion, airway protection, and clearance of the bolus through the pharynx with 100% accuracy in 5/[address]G 2 Speech Therapy No Arlen Valenzeula CCC-YOLIS Note: The patient will complete lingual strengthening/resistance, lingual elevation and depression, lingual lateralization, mandibular range of motion, and labial strengthening exercises throughout radiation therapy to ensure functional strength and range of motion of oral cavity structures to maintain functional diet tolerance. The patient will complete 6/6 exercises with 100% accuracy. ST STG 3 Speech Therapy Arlen Cordero, CHIN-RESIDENTIAL PROPERTY MANAGER Note: The patient will demonstrate basic knowledge on oral hygiene, xerostomia management, and dysgluesia and implement recommended strategies in his daily routine to improve oral intake to maintain oral nutrition throughout radiation therapy. documented as of this encounter Visit Diagnoses Not on filedocumented in this encounter Care Teams Cutter Operator Brick Relationship Specialty Start Date End Date Beau Hurt MD [address] [place] [address] PCP - General Medical Oncology 11/10/24 Rae Martin RN [address] [place], [place] [phone] Oncology Nurse Navigator 05/19/24 documented as of this encounter
--- OUTSIDE RECORDS SUMMARY | 2025-02-08 13:07 | XMS_ITS | Encounter Summary ---
Author Organization [facility] Address [address] [place] [address] Care Team Providers Care Cook Larder Name Role Phone Jonn Jain MD Primary Care Provider [phone] [facility] Rae Machado RN Unavailable [phone] Pcp, No Primary Care Provider Unavailabl e Beau Hurt MD Primary Care Provider [phone] Encounter Details Date Type Department Care Team (Late st Contact Info) Description 06/07/2024 Scanned Document [facility] Cancer [place] Medical Oncology at [facility] 85 [facility] [address] [place] [phone] Beau Hurt MD [address] [place], [place] [phone] Social History Tobacco Use Types Packs/Day Years [...] Description 02/09/2025 2:40 PM EDT Hospital Encounter [address] [phone] Kayla Escobar, RUBINA [address] [place] [address] 02/09/2025 2:50 PM EDT Appointment [address] [phone] Kayla Escobar APRN [address] [place] [address] 02/16/2025 9:45 AM EDT Office Visit [facility] Medical Oncology at [address] [phone] Sherita Khan APRN [address] [place] [address] 02/16/2025 10:30 AM EDT Infusion [facility] Cancer [place] at [facility] Outpatient Infusion [address] [phone] Beau Hurt MD [address] [place], [place] [phone] documented as of this encounter Visit Diagnoses Not on filedocumented in this encounter Additional Health Concerns Infection Onset Date Last Indicated Resolved Time R/O Respiratory Disease 08/17/2024 08/17/202407/29 12:52 AM EST documented as of this encounter Care Teams Cook Larder Relationship Specialty Start Date End Date Jonn Jain MD [address] [place] [address] PCP - General Family Medicine 05/18/24 10/30/24 Pcp, No PCP - General 10/31/24 11/09/24 Beau Hurt MD [address] [place] [address] PCP - General Medical Oncology 11/10/24 Rae Martin RN [address] [place] [address] Oncology Nurse Navigator 05/19/24 documented as of this encounter
--- OUTSIDE RECORDS SUMMARY | 2025-02-08 13:07 | XMS_ITS | Encounter Summary ---
Author Organization [facility] Address [address] [place] [address] Care Team Providers Care Global Chief Experience Officer Name Role Phone [facility] Rae White RN Unavailable [phone] Beau Hurt MD Primary Care Provider [phone] Encounter Details Date Type Department Care Team (Late st Contact Info) Description 12/12/2024 Scanned Document [facility] Cancer [place] Medical Oncology at [address] [phone] Beau Hurt MD [address] [place] [phone] Social History Tobacco Use Types Packs/Day Years Used Date Smoking Tobacco: Former Cigarettes Alcohol Use Standard Drinks/Week Comments Yes 0 (1 standard drink = 0.6 oz pur e alcohol) [facility] Utilities Answer Date Recorded In the past 12 months has [employer], gas, oil, or water [employer] threatened to shut off services in your [...] any time in the past 12 m [facility], were you homeless or living in a mcc (including now)? No 11/10/2024 Sex and Gender [...] 02/09/2025 2:40 PM EDT Hospital Encounter [address] [phone] Kayla Escobar, MANAGER FAMILY [address] [place] [address] 02/09/2025 2:50 PM EDT Appointment [facility] [address] [place] [address] Kayla Escobar, MANAGER FAMILY [address] [place], [place] [phone] 02/16/2025 9:45 AM EDT Office Visit [facility] Medical Oncology at [address] [phone] Sherita Khan, MANAGER FAMILY [address] [place], [place] [phone] 02/16/2025 10:30 AM EDT Infusion [facility] Cancer [place] at Outpatient Infusion Center [address] [phone] Beau Hurt MD [address] [place], [place] [phone] documented as of this encounter Goals Goal Patient Goal Type Associated Problems Recent Progress Patient-Stated? Author ST LTG 1 Speech Therapy No Arlen Valenzuela CCC-DICE TABLE OPERATOR Note: The patient will tolerate a least restrictive diet to maintain oral nutrition throughout radiation therapy. ST STG 1 Speech Therapy No Arlen Valenzuela CCC-DICE TABLE OPERATOR Note: The patient will complete pharyngeal strengthening exercises: supraglottic swallow, alma maneuver, effortful swallow to improve tongue base retraction, hyolaryngeal excursion, airway protection, and clearance of the bolus through the pharynx with 100% accuracy in 5/[address]G 2 Speech Therapy No Arlen Valenzuela CCC-DICE TABLE OPERATOR Note: The patient will complete lingual strengthening/resistance, lingual elevation and depression, lingual lateralization, mandibular range of motion, and labial strengthening exercises throughout radiation therapy to ensure functional strength and range of motion of oral cavity structures to maintain functional diet tolerance. The patient will complete 6/6 exercises with 100% accuracy. ST STG 3 Speech Therapy Arlen Cordero, CHIN-DICE TABLE OPERATOR Note: The patient will demonstrate basic knowledge on oral hygiene, xerostomia management, and dysgluesia and implement recommended strategies in his daily routine to improve oral intake to maintain oral nutrition throughout radiation therapy. documented as of this encounter Visit Diagnoses Not on filedocumented in this encounter Care Teams Global Chief Experience Officer Relationship Specialty Start Date End Date Beau Hurt MD [address] [place] [address] PCP - General Medical Oncology 11/10/24 Rae Martin RN [address] [place] [address] Oncology Nurse Navigator 05/19/24 documented as of this encounter
--- OUTSIDE RECORDS SUMMARY | 2025-02-08 13:07 | XMS_ITS | Encounter Summary ---
Author Organization [facility] Address [address] [place] [address] Care Team Providers Care Marketing Sales Manager Name Role Phone Rae Martin Christopher RN Unavailable [phone] Pcp, No Primary Care Provider Unavailabl e Beau Hurt MD Primary Care Provider Encounter Details Date Type Department Care Team (Late st Contact Info) Description 11/07/2024 Scanned Document [facility] Cancer [place] Medical Oncology at [facility] [address] [address] Beau Hurt MD [address] [place] [address] Social History Tobacco Use Types Packs/Day Years Used Date Smoking Tobacco: Former Cigarettes Alcohol Use Standard Drinks/Week Comments Yes 0 (1 standard drink = 0.6 oz pur e alcohol) [facility] Utilities Answer Date Recorded In the past 12 months has [employer], gas, oil, or water [employer] threatened to shut off services in your [...] any time in the past [address] [facility], were you homeless or living in a retirement (including now)? No 11/10/2024 Sex and Gender Information Value Date Recorded Sex Assigned at Male 06/12/2024 10:57 AM EDT Legal Sex Male 10:53 AM EDT Gender Identity Male 06/12/2024 10:57 AM EDT Sexual Orientation Heterosexual (straight) 06/12 10:57 AM EDT documented as of this encounter Functional Status * Audit-C Score Answer Date of Assessment Author 0 11/10/2024 4:00 PM Bernie Varela RN * Question Answer Date of Assessment Author Q1: How often do you have a drink containing alcohol? Never 11/10/2024 4:00 PM Bernie Varela, RN Q2: How many drinks containing alcohol do you have on a typical day when you are drinking? Patient does not drink 11/10/2024 4:00 PM Bernie Varela RN Q3: How often do you have six or more drinks on one occasion? Never 11/10/2024 4:00 PM EST Bernie Burroughs RN documented as of this encounter Plan of Treatment Upcoming Encounters Date Type Department Care Team (Late st Contact Info) Description 02/09/2025 2:40 PM EDT Hospital Encounter [address] [phone] Kayla Escobar, NEON TUBE BENDER [address] [place] [address] 02/09/2025 2:50 PM EDT Appointment [address] [phone] Kayla Escobar, NEON TUBE BENDER [address] [place] [address] 02/16/2025 9:45 AM EDT Office Visit [facility] Medical Oncology at [address] [phone] Sherita Khan, NEON TUBE BENDER [address] [place] [address] 02/16/2025 10:30 AM EDT Infusion [facility] Cancer [place] at [facility] Outpatient Infusion Center [address] [address] Beau Hurt MD [address] [place] [address] documented as of this encounter Goals Goal Patient Goal Type Associated Problems Recent Progress Patient-Stated? Author ST LTG 1 Speech Therapy Arlen Cordero CCC-ELECTRIC MOTOR REBUILDER Note: The patient will tolerate a least restrictive diet to maintain oral nutrition throughout radiation therapy. ST STG 1 Speech Therapy No Arlen Valenzuela CCC-ELECTRIC MOTOR REBUILDER Note: The patient will complete pharyngeal strengthening [...] on filedocumented in this encounter Care Teams Marketing Sales Manager Relationship Specialty Start Date End Date Pcp, No PCP - General 10/31/24 11/09/24 Beau Hurt MD [address] [place] [phone] PCP - General Medical Oncology 11/10/24 Rae Martin RN 85 [place] [address] Oncology Nurse Navigator 05/19/24 documented as of this encounter
--- OUTSIDE RECORDS SUMMARY | 2025-02-08 13:07 | XMS_ITS | Encounter Summary ---
Author Organization Formerly [facility] Address [address] [place] [address] Care Team Providers Care Hospital Pharmacy Director Name Role Phone Rae Machado RN Unavailable [phone] Beau Hurt MD Primary Care Provider [phone] Encounter Details Date Type Department Care Team (Late st Contact Info) Description 01/10/2025 Scanned Document [facility] ONCOLOGY SCAN Oncology, Scan Social History Tobacco Use Types Packs/Day Years Used Date Smoking Tobacco: Former Cigarettes Alcohol Use Standard Drinks/Week Comments Yes 0 (1 standard drink = 0.6 oz pur e alcohol) [facility] Utilities Answer Date Recorded In the past [...] were you homeless or living in a custodial (including now)? No 11/10/2024 Sex and Gender [...] 02/09/2025 2:40 PM EDT Hospital Encounter [address] [phone] Kayla Escobar, RUBINA [address] [place] [address] 02/09/2025 2:50 PM EDT Appointment [address] [phone] Kayla Escobar APRN [address] [place] [address] 02/16/2025 9:45 AM EDT Office Visit [facility] Medical Oncology at [facility] [address] [place] [phone] Sherita Khan APRN [address] [place] [address] 02/16/2025 10:30 AM EDT Infusion [facility] Cancer [place] at [facility] [place] [address] [place] [address] Beau Hurt MD [address] [place], [place] [phone] documented as of this encounter Goals Goal Patient Goal Type Associated Problems Recent Progress Patient-Stated? Author ST LTG 1 Speech Therapy No Arlen Valenzuela CCC-YOLIS Note: The patient will tolerate a least restrictive diet to maintain oral nutrition throughout radiation therapy. ST STG 1 Speech Therapy No Arlen Valenzuela CCC-RESEARCH CHEMICAL ENGINEER Note: The patient will complete pharyngeal strengthening exercises: supraglottic swallow, alma maneuver, effortful swallow to improve tongue base retraction, hyolaryngeal excursion, airway protection, and clearance of the bolus through the pharynx with 100% accuracy in 5/[address]G 2 Speech Therapy No Arlen Valenzuela CCC-RESEARCH CHEMICAL ENGINEER Note: The patient will complete lingual strengthening/resistance, lingual elevation and depression, lingual lateralization, mandibular range of motion, and labial strengthening exercises throughout radiation therapy to ensure functional strength and range of motion of oral cavity structures to maintain functional diet tolerance. The patient will complete 6/6 exercises with 100% accuracy. ST STG 3 Speech Therapy No Arlen Valenzuela CCC-RESEARCH CHEMICAL ENGINEER Note: The patient will demonstrate basic knowledge on oral hygiene, xerostomia management, and dysgluesia and implement recommended strategies in his daily routine to improve oral intake to maintain oral nutrition throughout radiation therapy. documented as of this encounter Visit Diagnoses Not on filedocumented in this encounter Care Teams Hospital Pharmacy Director Relationship Specialty Start Date End Date Beau Hurt MD 85 [place], [place] [phone] PCP - General Medical Oncology 11/10/24 Rae Martin RN 85 [place], [place] [phone] Oncology Nurse Navigator 05/19/24 documented as of this encounter
--- OUTSIDE RECORDS SUMMARY | 2025-02-08 13:07 | XMS_ITS | Encounter Summary ---
Author Organization [facility] Address [address] [place] [address] Care Team Providers Care Netbackup Admin Name Role Phone Jonn Jain MD Primary Care Provider [phone] [facility] Rae Machado RN Unavailable [phone] Pcp, No Primary Care Provider UnavailBeau Nguyen MD Primary Care Provider [phone] Encounter Details Date Type Department Care Team (Late st Contact Info) Description 05/31/2024 Scanned Document [facility] Radiation Oncology [address] [place] [phone] Provider, Generic Social History Tobacco Use Types Packs/Day Years Used Date Smoking Tobacco: Never Assessed AUDIT-C Answer Date Recorded Q1: How often [...] Audit-C Score Answer Date of Assessment Author 4 05/31/2024 1:30 PM EDT Tk Dalton RN * Question Answer Date of Assessment Author Q1: How often do you have a drink containing alcohol? 2-3 times a week 05/31/2024 1:30 PM EDT Jocy Dalton RN Q2: How many drinks containing alcohol do you have on a typical day when you are drinking? 3 or 4 05/31/2024 1:30 PM EDT Gwen Dalton RN Q3: How often do you have six or more drinks on one occasion? Never 05/31/2024 1:30 PM EDT Gwen Dalton RN * Question Answer Date of Assessment Author Feeling nervous, anxious, or on edge 0 12/2023 1:30 PM EDT Gwen Dalton RN Not being able to stop or co ntrol worrying 0 05/31/2024 1:30 PM EDT Gwen Dalton RN Worrying too much about diff erent things 0 05/31/2024 1:30 PM EDT Gwen Dalton RN Trouble relaxing 1 05/31/2024 1:30 PM EDT T Gwen quesada RN Being so restless that it is hard to sit still 0 05/31/2024 1:30 PM EDT Gwen Dalton RN Becoming easily annoyed or irritable 1 12/2023 1:30 PM EDT Gwen Dalton RN Feeling afraid as if somethi ng awful might happen 0 05/31/2024 1:30 PM EDT Gwen Dalton RN * Question Answer Date of Assessment Author Little interest or pleasure in doing things Several days 05/31/2024 1:30 PM EDT Gwen Dalton RN Feeling down, depressed, or hopeless Not at all 05/31/2024 1:30 PM EDT Gwen Dalton RN * Over the past 2 weeks, how often have you been bothered by any of the following problems? Question Answer Date of Assessment Author Patient Health Questionnaire-2 Score 1 12/2023 1:30 PM EDT Gwen Dalton RN * Over the last 2 weeks, how often have you been bothered by any of the following problems? Question Answer Date of Assessment Author MAIKEL-7 Total Score 2 05/31/2024 1:30 PM EDT Gwen Dalton RN documented as of this encounter Plan of Treatment Upcoming Encounters Date Type Department Care Team (Late st Contact Info) Description 02/09/2025 2:40 PM EDT Hospital Encounter [address] [phone] Kayla Escobar APRN [address] [place] [address] 02/09/2025 2:50 PM EDT Appointment [address] [address] Kayla Escobar APRN [address] [place] [address] 02/16/2025 9:45 AM EDT Office Visit [facility] Medical Oncology at [address] [phone] Sherita Khan APRN [address] [place] [address] 02/16/2025 10:30 AM EDT Infusion [facility] [place] at [facility] Outpatient Infusion [address] [phone] Beau Hurt MD [address] [place] [address] documented as of this encounter Visit Diagnoses Not on filedocumented in this encounter Additional Health Concerns Infection Onset Date Last Indicated Resolved Time R/O Respiratory Disease 08/17/2024 08/17/202407/29 12:52 AM EST documented as of this encounter Care Teams Netbackup Admin Relationship Specialty Start Date End Date Jonn Jain MD [address] [place] [address] PCP - General Family Medicine 05/18/24 10/30/24 Pcp, No PCP - General 10/31/24 11/09/24 Beau Hurt MD [address] [place] [address] PCP - General Medical Oncology 11/10/24 Rae Martin RN [address] [place] [address] Oncology Nurse Navigator 05/19/24 documented as of this encounter
--- OUTSIDE RECORDS SUMMARY | 2025-02-08 13:07 | XMS_ITS | Encounter Summary ---
Author Organization [facility] Address [address] [place] [address] Care Team Providers Care Poultry Breeder Name Role Phone [facility] Rae White RN Unavailable [phone] Beau Hurt MD Primary Care Provider [phone] Encounter Details Date Type Department Care Team (Late st Contact Info) Description 12/12/2024 Scanned Document [facility] Cancer [place] Medical Oncology at [address] [phone] Beau Hurt MD [address] [place] [phone] Social History Tobacco Use Types Packs/Day Years Used Date Smoking Tobacco: Former Cigarettes Alcohol Use Standard Drinks/Week Comments Yes 0 (1 standard drink = 0.6 oz pur e alcohol) [facility] Utilities Answer Date Recorded In the past 12 months has [employer], gas, oil, or water [employer] threatened to shut off services in your [...] were you homeless or living in a usp (including now)? No 11/10/2024 Sex and Gender [...] Description 02/09/2025 2:40 PM EDT Hospital Encounter [address] [phone] Kayla Escobar, PLANTING MATERIAL REMOVER [address] [place] [address] 02/09/2025 2:50 PM EDT Appointment [facility] [address] [place] [address] Kayla Escobar, PLANTING MATERIAL REMOVER [address] [place], [place] [phone] 02/16/2025 9:45 AM EDT Office Visit [facility] Medical Oncology at [address] [phone] Sherita Khan, PLANTING MATERIAL REMOVER [address] [place], [place] [id number] 02/16/2025 10:30 AM EDT Infusion [facility] Cancer [place] at [facility] Outpatient Infusion Center [address] [phone] Beau Hurt MD [address] [place], [place] [phone] documented as of this encounter Goals Goal Patient Goal Type Associated Problems Recent Progress Patient-Stated? Author ST LTG 1 Speech Therapy No Arlen Valenzuela CCC-RAPID TRANSIT OPERATOR Note: The patient will tolerate a least restrictive diet to maintain oral nutrition throughout radiation therapy. ST STG 1 Speech Therapy No Arlen Valenzuela CCC-RAPID TRANSIT OPERATOR Note: The patient will complete pharyngeal strengthening exercises: supraglottic swallow, alma maneuver, effortful swallow to improve tongue base retraction, hyolaryngeal excursion, airway protection, and clearance of the bolus through the pharynx with 100% accuracy in 5/[address]G 2 Speech Therapy No Arlen Valenzuela CCC-RAPID TRANSIT OPERATOR Note: The patient will complete lingual strengthening/resistance, lingual elevation and depression, lingual lateralization, mandibular range of motion, and labial strengthening exercises throughout radiation therapy to ensure functional strength and range of motion of oral cavity structures to maintain functional diet tolerance. The patient will complete 6/6 exercises with 100% accuracy. ST STG 3 Speech Therapy Arlen Cordero, CHIN-RAPID TRANSIT OPERATOR Note: The patient will demonstrate basic knowledge on oral hygiene, xerostomia management, and dysgluesia and implement recommended strategies in his daily routine to improve oral intake to maintain oral nutrition throughout radiation therapy. documented as of this encounter Visit Diagnoses Not on filedocumented in this encounter Care Teams Poultry Breeder Relationship Specialty Start Date End Date Beau Hurt MD [address] [place] [address] PCP - General Medical Oncology 11/10/24 aRe Martin RN [address] [place] [address] Oncology Nurse Navigator 05/19/24 documented as of this encounter
--- OUTSIDE RECORDS SUMMARY | 2025-02-08 13:07 | XMS_ITS | Encounter Summary ---
Author Organization [facility] Address [address] [place] [address] Care Team Providers Care Director Safety Name Role Phone St. BaileyRae serrano RN Unavailable [phone] Beau Hurt MD Primary Care Provider [phone] Encounter Details Date Type Department Care Team (Late st Contact Info) Description 12/29/2024 Scanned Document [facility] [place] Medical Oncology at [facility] [address] [address] [place] [address] Social History Tobacco Use Types Packs/Day Years Used Date Smoking Tobacco: Former Cigarettes Alcohol Use Standard Drinks/Week Comments Yes 0 (1 standard drink = 0.6 oz pur e alcohol) [facility] Utilities Answer Date Recorded In the past 12 months has [employer], gas, oil, or water [employer] threatened to shut off services in your [...] any time in the past 12 m [facility], were you homeless or living in a assisted (including now)? No 11/10/2024 Sex and Gender [...] Description 02/09/2025 2:40 PM EDT Hospital Encounter [facility] Radiology [facility] [address] [place] [phone] Kayla Escobar, RUBINA [address] [place] [address] 02/09/2025 2:50 PM EDT Appointment [facility] Radiology [facility] [address] [place] [address] Kayla Escobar APRN [address] [place] [id number] 02/16/2025 9:45 AM EDT Office Visit [facility] Medical Oncology at [address] [phone] Sherita Khan APRN [address] [place], [place] [id number] 02/16/2025 10:30 AM EDT Infusion [facility] Cancer [place] at [facility] Outpatient Infusion Center [address] [phone] Beau Hurt MD [address] [place], [place] [phone] documented as of this encounter Goals Goal Patient Goal Type Associated Problems Recent Progress Patient-Stated? Author ST LTG 1 Speech Therapy No Arlen Valenzuela CCC-JAVA ORACLE DEVELOPER Note: The patient will tolerate a least restrictive diet to maintain oral nutrition throughout radiation therapy. ST STG 1 Speech Therapy No Arlen Valenzuela CCC-JAVA ORACLE DEVELOPER Note: The patient will complete pharyngeal strengthening exercises: supraglottic swallow, alma maneuver, effortful swallow to improve tongue base retraction, hyolaryngeal excursion, airway protection, and clearance of the bolus through the pharynx with 100% accuracy in 5/[address]G 2 Speech Therapy No Arlen Valenzuela CCC-YOLIS Note: The patient will complete lingual strengthening/resistance, lingual elevation and depression, lingual lateralization, mandibular range of motion, and labial strengthening exercises throughout radiation therapy to ensure functional strength and range of motion of oral cavity structures to maintain functional diet tolerance. The patient will complete 6/6 exercises with 100% accuracy. ST STG 3 Speech Therapy Arlen Codrero, CHIN-JAVA ORACLE DEVELOPER Note: The patient will demonstrate basic knowledge on oral hygiene, xerostomia management, and dysgluesia and implement recommended strategies in his daily routine to improve oral intake to maintain oral nutrition throughout radiation therapy. documented as of this encounter Visit Diagnoses Not on filedocumented in this encounter Care Teams Director Safety Relationship Specialty Start Date End Date Beau Hurt MD [address] [place] [address] PCP - General Medical Oncology 11/10/24 Rae Martin RN [address] [place], [place] [phone] Oncology Nurse Navigator 05/19/24 documented as of this encounter
--- OUTSIDE RECORDS SUMMARY | 2025-02-08 13:07 | XMS_ITS | Encounter Summary ---
Author Organization [facility] Address [address] [place] [address] Care Team Providers Care Senior Hardware Engineer Name Role Phone Jonn Jain MD Primary Care Provider [phone] [facility] Rae Machado RN Unavailable [phone] Pcp, No Primary Care Provider Unavailsisi e Beau Hurt MD Primary Care Provider [phone] Encounter Details Date Type Department Care Team (Late st Contact Info) Description 05/26/2024 Scanned Document [facility] Radiation Oncology [address] [place] [phone] Provider, Generic Social History Tobacco Use Types Packs/Day Years Used Date Smoking Tobacco: Never Assessed Overall Financial Resource Strain (CARDIA) Answe r Date Recorded How hard is it for you to pa y for the very basics like food, housing, medical care, and heating? Not hard at all 05/24/2024 Sex and Gender Information Value Date Recorded Sex Assigned at Male 06/12/2024 10:57 AM EDT Legal Sex Male 10:53 AM EDT Gender Identity Male 06/12/2024 10:57 AM EDT Sexual Orientation Heterosexual (straight) 06/12 10:57 AM EDT documented as of this encounter Plan of Treatment Upcoming Encounters Date Type Department Care Team (Late st Contact Info) Description 02/09/2025 2:40 PM EDT Hospital Encounter [facility] [address] [place] [address] Kayla Escobar, AIRCONDITIONING PLANT OPERATOR [address] [place], [place] [phone] 02/09/2025 2:50 PM EDT Appointment [facility] Radiology [facility] [address] [place] [phone] Kayla Escobar, AIRCONDITIONING PLANT OPERATOR [address] [place], [place] [phone] 02/16/2025 9:45 AM EDT Office Visit [facility] Medical Oncology at [address] [phone] Sherita Khan, AIRCONDITIONING PLANT OPERATOR [address] [place] [id number] 02/16/2025 10:30 AM EDT Infusion [facility] [place] [facility] Outpatient Infusion Center [address] [phone] Beau Hurt MD [address] [place], [place] [phone] documented as of this encounter Visit Diagnoses Not on filedocumented in this encounter Additional Health Concerns Infection Onset Date Last Indicated Resolved Time R/O Respiratory Disease 08/17/2024 08/17/202407/29 12:52 AM EST documented as of this encounter Care Teams Senior Hardware Engineer Relationship Specialty Start Date End Date Jonn Jain MD [address] [place] [address] PCP - General Family Medicine 05/18/24 10/30/24 Pcp, No PCP - General 10/31/24 11/09/24 Beau Hurt MD [address] [place] [address] PCP - General Medical Oncology 11/10/24 Rae Martin RN [address] [place] [address] Oncology Nurse Navigator 05/19/24 documented as of this encounter
--- OUTSIDE RECORDS SUMMARY | 2025-02-08 13:07 | XMS_ITS | Encounter Summary ---
Author Organization [facility] Address [address] [place] [address] Care Team Providers Care Glass Enamel Mixer Name Role Phone [facility] Rae White RN Unavailable [phone] Beau Hurt MD Primary Care Provider [phone] Encounter Details Date Type Department Care Team (Late st Contact Info) Description 01/29/2025 Scanned Document [facility] Cancer [place] Medical Oncology at [address] [address] Beau Hurt MD [address] [place] [id number] Social History Tobacco Use Types Packs/Day Years Used Date Smoking Tobacco: Former Cigarettes Alcohol Use Standard Drinks/Week Comments Yes 0 (1 standard drink = 0.6 oz pur e alcohol) [facility] Utilities Answer Date Recorded In the past 12 months has [employer], gas, oil, or water [employer] threatened to shut off services in your [...] any time in the past 12 m [facility], were you homeless or living in [...] 02/09/2025 2:40 PM EDT Hospital Encounter [address] [phone] Kayla Escobar, SODA FLAKER [address] [place] [address] 02/09/2025 2:50 PM EDT Appointment [facility] [address] [place] [address] Kayla Escobar, SODA FLAKER [address] [place], [place] [phone] 02/16/2025 9:45 AM EDT Office Visit [facility] Medical Oncology at [address] [phone] Sherita Khan, SODA FLAKER [address] [place], [place] [phone] 02/16/2025 10:30 AM EDT Infusion [facility] Cancer [place] at [facility] Outpatient Infusion Center [address] [phone] Beau Hurt MD [address] [place], [place] [phone] documented as of this encounter Goals Goal Patient Goal Type Associated Problems Recent Progress Patient-Stated? Author ST LTG 1 Speech Therapy No Arlen Valenzuela CCC-B2B MANAGED SERVICE SALES EXEC Note: The patient will tolerate a least restrictive diet to maintain oral nutrition throughout radiation therapy. ST STG 1 Speech Therapy No Arlen Valenzuela CCC-B2B MANAGED SERVICE SALES EXEC Note: The patient will complete pharyngeal strengthening exercises: supraglottic swallow, alma maneuver, effortful swallow to improve tongue base retraction, hyolaryngeal excursion, airway protection, and clearance of the bolus through the pharynx with 100% accuracy in 5/[address]G 2 Speech Therapy No Arlen Valenzuela CCC-B2B MANAGED SERVICE SALES EXEC Note: The patient will complete lingual strengthening/resistance, lingual elevation and depression, lingual lateralization, mandibular range of motion, and labial strengthening exercises throughout radiation therapy to ensure functional strength and range of motion of oral cavity structures to maintain functional diet tolerance. The patient will complete 6/6 exercises with 100% accuracy. ST STG 3 Speech Therapy Arlen Cordero, CHIN-B2B MANAGED SERVICE SALES EXEC Note: The patient will demonstrate basic knowledge on oral hygiene, xerostomia management, and dysgluesia and implement recommended strategies in his daily routine to improve oral intake to maintain oral nutrition throughout radiation therapy. documented as of this encounter Visit Diagnoses Not on filedocumented in this encounter Care Teams Glass Enamel Mixer Relationship Specialty Start Date End Date Beau Hurt MD [address] [place] [address] PCP - General Medical Oncology 11/10/24 Rae Martin RN [address] [place] [address] Oncology Nurse Navigator 05/19/24 documented as of this encounter
--- OUTSIDE RECORDS SUMMARY | 2025-02-08 13:07 | XMS_ITS | Encounter Summary ---
Author Organization [facility] Address [address] [place] [address] Care Team Providers Care Machine Baster Name Role Phone St. BaileyRae serrano RN Unavailable [phone] Beau Hurt MD Primary Care Provider [phone] Encounter Details Date Type Department Care Team (Late st Contact Info) Description 12/25/2024 Scanned Document [facility] [place] Medical Oncology at [facility] [address] [address] [place] [address] Social History Tobacco Use Types Packs/Day Years Used Date Smoking Tobacco: Former Cigarettes Alcohol Use Standard Drinks/Week Comments Yes 0 (1 standard drink = 0.6 oz pur e alcohol) [facility] Utilities Answer Date Recorded In the past 12 months has [employer], gas, oil, or water [employer] threatened to shut off services in your [...] any time in the past 12 m [facility], were you homeless or living in a senior care (including now)? No 11/10/2024 Sex and Gender [...] Description 02/09/2025 2:40 PM EDT Hospital Encounter [facility] Radiology [facility] [address] [place] [phone] Kayla Escobar, RUBINA [address] [place] [address] 02/09/2025 2:50 PM EDT Appointment [facility] Radiology [facility] [address] [place] [address] Kayla Escobar APRN [address] [place] [id number] 02/16/2025 9:45 AM EDT Office Visit [facility] Medical Oncology at [address] [phone] Sherita Khan APRN [address] [place], [place] [id number] 02/16/2025 10:30 AM EDT Infusion [facility] [place] at [facility] Outpatient Infusion Center [address] [phone] Beau Hurt MD [address] [place], [place] [phone] documented as of this encounter Goals Goal Patient Goal Type Associated Problems Recent Progress Patient-Stated? Author ST LTG 1 Speech Therapy No Arlen Valenzuela CCC-MUSIC WORKER Note: The patient will tolerate a least restrictive diet to maintain oral nutrition throughout radiation therapy. ST STG 1 Speech Therapy No Arlen Valenzuela CCC-MUSIC WORKER Note: The patient will complete pharyngeal strengthening [...] ST STG 3 Speech Therapy Arlen Cordero, CHIN-MUSIC WORKER Note: The patient will demonstrate basic knowledge on oral hygiene, xerostomia management, and dysgluesia and implement recommended strategies in his daily routine to improve oral intake to maintain oral nutrition throughout radiation therapy. documented as of this encounter Visit Diagnoses Not on filedocumented in this encounter Care Teams Machine Baster Relationship Specialty Start Date End Date Beau Hurt MD [address] [place] [address] PCP - General Medical Oncology 11/10/24 Rae Martin RN [address] [place], [place] [phone] Oncology Nurse Navigator 05/19/24 documented as of this encounter
--- OUTSIDE RECORDS SUMMARY | 2025-02-08 13:07 | XMS_ITS ---
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 11/11/2024 Dilated cardiomyopathy 11/11/2024 History of transcatheter aortic valve replacemen t (TAVR) 11/11/2024 Abscess of left forearm 11/11/2024 Infected wound 11/09/2024 Lymphadenopathy 11/08/2024 Pneumonia due to organism 08/17/2024 Hypotension 08/17/2024 Head and neck cancer 06/02/2024 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 Pembrolizumab (200 mg) Until Progression or Unacceptable Toxicity* Plan Start Date:12/07/2024 Plan Provider:Beau Hurt MD Linked Problems Head and neck cancer (HCC) Treatment Medications Current Day (Day 1 , Cycle 3 - Planned for 02/16/2025) Next Day (Day 1, Cycle 4 - Planned for 03/09/2025) pembrolizumab (KEYTRUDA) IVP B in 50 mL NS pembrolizumab (KEYTRUDA) 200 mg in sodium chloride (NS) 0.9 % 50 mL IVPB pembrolizumab (KEYTRUDA) 200 mg in sodium chloride (NS) 0.9 % 50 mL IVPB Past Treatment and Therapy Plans ONCOLOGY TREATMENT PLAN 1 Plan Name Start Date Discontinue Date Treatment Medications Discontinue Reason Plan Provider Cycles PACLitaxel (45 mg/m??) + CARBOplatin (AUC(1.5)) + Concurrent Radiation for 7 Weeks 4 12/08/2024 CARBOplatin (PARAPLATIN) AUC dosed IVPB in 100 mL NS (0-125 MG)CARBOplatin (PARAPLATIN) AUC dosed IVPB in 250 mL NS (QS Base)PACLitaxe l (TaxOL) IVPB in 100 mL NS (<60 mg/m2) Therapy Complete Beau Hurt MD 1 of 1 cycle started Radiation Treatments * Course 1 06/12/2024 - 07/28/2024 Treatment Sites Treatment Period Technique Fraction Dose Fra ctions Total Dose A4-6 LHypophnxNew 07/07/2024 - 07/28/2024 VMAT 200 / 200 3,200 / 3,200 A1-3 LHypophrnxNecks 06/12/2024 - 07/06/2024 VMAT 200 / 200 3,800 / 3,800
--- OUTSIDE RECORDS SUMMARY | 2025-02-08 13:08 | XMS_ITS | Clinical Summary ---
Author Organization [facility] Address [address] [place] [address] Care Team Providers Care Bacteriologist Fishery Name Role Phone Mauro BaileyRae serrano RN Unavailable [phone] Beau Hurt MD Primary Care Provider [phone] Allergies No known active allergies Medications atorvastatin (LIPITOR) 80 MG tablet Take 1 tablet (80 mg total) by mouth nightly. Active aspirin enteric coated (ECOTRIN LOW STRENGTH) 81 MG EC tablet Take 1 tablet (81 mg total) by mouth daily. Active amiODARONE (PACERONE) 200 MG tablet Take 1 tablet (200 mg total) by mouth daily. Active spironolactone (ALDACTONE) 25 MG tablet Take 0.5 tablets (12.5 mg total) by mouth daily. On hold Active acetaminophen (TYLENOL) 325 MG tablet Take 3 tablets (975 mg total) by mouth 4 times daily (every 6 hours) as needed for mild pain. Active metoPROLOL TARTRATE (LOPRESSOR) 25 MG tablet Take 0.5 tablets (12.5 mg total) by mouth daily. Active mometasone (ELOCON) 0.1 % creamIndications :Hypopharyngeal cancer (HCC) Mix 1:1 with moisturizer and apply to both sides of neck once daily starting first day of radiation 45 g 11 4 Active silver sulfADIAZINE (SILVADENE) 1 % creamIndications :Hypopharyngeal cancer (HCC) Apply topically 2 (two) times a day. 400 g 3 4 Active furosemide (LASIX) 40 MG tablet Take 1 tablet (40 mg total) by mouth daily. On hold Active nystatin (MYCOSTATIN) 940209 UNIT/ML suspensionIndica tions:Hypopharyn geal cancer (HCC) Take 5 mL (500,000 Units total) by mouth 4 (four) times a day. 420 mL 4 Active empagliflozin (Jardiance) 10 MG tabletIndication s:Abscess Take 1 tablet (10 mg total) by mouth nightly. 30 tablet 3 5 Active oxyCODONE (ROXICODONE) 5 MG immediate release tabletIndication s:Abscess Take 1 tablet (5 mg total) by mouth 3 times daily (every 8 hours) as needed for severe pain. Max Daily Amount: 15 mg 30 tablet 5 Active apixaban (ELIQUIS) 5 MG tabletIndication s:Abscess Take 1 tablet (5 mg total) by mouth 2 (two) times a day. 30 tablet 3 5 Active levothyroxine (SYNTHROID, LEVOTHROID) 25 MCG tablet Take 1 tablet (25 mcg total) by mouth daily on an empty stomach. Active midodrine (ProAmatine) 5 MG tablet Take 1 tablet (5 mg total) by mouth 3 (three) times a day. Take during daytime hours. Active PANTOprazole (PROTONIX) 40 MG EC tablet Take 1 tablet (40 mg total) by mouth every morning before breakfast. 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, cM0) - Unsigned Encounters Date Type Department Care Team Description 02/08/2025 Scanned Document [facility] Medical Oncology at [address] [place] [address] Beau Hurt MD 02/06/2025 Orders Only [facility] Medical Oncology at [address] [place] [phone] Oncology, Scan 01/29/2025 Scanned Document [facility] Medical Oncology at [address] [place] [address] Beau Hurt MD 01/29/2025 Scanned Document [facility] Medical Oncology at [address] [place] [address] Beau Hurt MD 01/26/2025 11:00 AM EDT Infusion [facility] Outpatient Infusion [address] [place] [phone] Beau Hurt MD Vogt, Sarah E, RN Head and neck cancer (HCC) (Primary Dx) 01/26/2025 10:15 AM EDT Office Visit [facility] Medical Oncology at [address] [place] [phone] Beau Hurt MD Bellantuono, Angela, APRN Hypopharyngeal cancer (HCC) (Primary Dx) 01/26/2025 Travel 01/26/2025 Orders Only [facility] Medical Oncology at [address] [place] [phone] Beau Hurt MD Hypopharyngeal cancer (HCC) 01/22/2025 2:45 PM EDT Ancillary Procedure [facility] Radiology [address] [place] [phone] Provider, File Room 01/22/2025 2:45 PM EDT Ancillary Procedure [facility] Radiology [address] [place] [phone] Provider, File Room 01/22/2025 2:40 PM EDT Ancillary Procedure [facility] Radiology [address] [facility] [place] [address] Provider, File Room 01/22/2025 2:40 PM EDT Ancillary Procedure [facility] Radiology [address] [facility] [place] [address] Provider, File Room 01/22/2025 2:40 PM EDT Ancillary Procedure [facility] Radiology [address] [place] [address], [place] [address] Provider, File Room 01/22/2025 Documentation - Oncology Nurse Navigator ONCOLOGY IP [address] [place] [address], [place] [phone] Vicky Reinoso RN 01/22/2025 Orders Only [facility] Medical Oncology at [address] [place] [address] Oncology, Scan 01/19/2025 9:00 AM EDT Office Visit [facility] Medical Oncology at [address] [place] [address] Beau Hurt MD Hypopharyngeal cancer (HCC) (Primary Dx) 01/19/2025 Travel 01/12/2025 Orders Only [facility] Medical Oncology at [address] [place] [address] Beau Hurt MD Hypopharyngeal cancer (HCC) 01/11/2025 Nurse Triage [facility] Medical Oncology at [address] [place] [address] Alyssia Bailey, JIGAR 01/10/2025 Scanned Document [facility] ONCOLOGY SCAN Oncology, Scan 01/10/2025 Scanned Document [facility] ONCOLOGY SCAN Oncology, Scan 01/08/2025 Orders Only [facility] Radiology [address] [place] [address], [place] [address] Provider, File Room 01/01/2025 Orders Only [facility] Radiology [address] [place] [address], [place] [address] Provider, File Room 12/29/2024 Scanned Document [facility] Medical Oncology at [address] [place] [address] Beau Hurt MD 12/29/2024 Orders Only [facility] Medical Oncology at [address] [place] [phone] Beau Hurt MD Hypopharyngeal cancer (HCC) 12/28/2024 Nurse Triage [facility] Medical Oncology at [address] [place] [address] Alyssia Bailey, JIGAR 12/27/2024 Orders Only [facility] Medical Oncology at [address] [place] [phone] Home Health Services, Scan 12/25/2024 Scanned Document [facility] Medical Oncology at [address] [place] [address] Beau Hurt MD 12/21/2024 Scanned Document [facility] ONCOLOGY SCAN Oncology, Scan 12/21/2024 Orders Only [facility] Radiology [address] [facility] [place] [address] Provider, File Room 12/18/2024 Nurse Triage [facility] Medical Oncology at [address] [place] [address] Alyssia Bailye RN 12/15/2024 1:45 PM EDT Infusion [facility]fusion Center [address] [place] [phone] Beau Hurt MD Rankin-[place]rne, Shauna N, RN Head and neck cancer (HCC) (Primary Dx) 12/15/2024 1:30 PM EDT Office Visit [facility] Medical Oncology at [address] [place] [phone] Beau Hurt MD Hypopharyngeal cancer (HCC) (Primary Dx) 12/15/2024 Travel 12/12/2024 12:15 PM EDT Infusion [facility] [place] [facility]fusion [facility] [address] [place] [phone] eBau Hurt MD Hollister, Brianna N, RN Hypopharyngeal cancer (HCC) 12/12/2024 11:15 AM EDT Office Visit [facility] Medical Oncology at [address] [place] [phone] Beau Hurt MD Brown, Colleen M, SKIP HOIST OPERATOR Head and neck cancer (HCC) (Primary Dx); Hypotension 12/12/2024 Scanned Document [facility] Medical Oncology at [address] [place] [address] Beau Hurt MD 12/12/2024 Scanned Document [facility] Medical Oncology at [address] [place] [address] Beau Hurt MD 12/12/2024 Scanned Document [facility] Medical Oncology at [address] [place] [address] Beau Hurt MD 12/12/2024 Travel 12/11/2024 Documentation [facility] [place] [address] [place] [address] Robert Tong, 12/08/2024 Telephone [facility] Medical Oncology at [address] [place] [address] Beau Hurt MD 12/08/2024 Scanned Document [facility] Medical Oncology at [address] [place] [address] Beau Hurt MD 12/07/2024 2:46 PM EDT - 12/07/2024 11:59 PM EDT Hospital Encounter [facility] Rad[facility] [address] [place] [address] Robert Tong, Neck mass; Hypopharyngeal cancer (HCC); Head and neck cancer (HCC) Discharge Disposition: Home or Self Care 12/06/2024 12:30 PM EDT Office Visit [facility] [address] [facility], [address] [place] [address] Robert Tong, DO Neck mass (Primary Dx); Neck pain; Hypopharyngeal cancer (HCC) 12/05/2024 8:30 AM EDT Office Visit [facility] Medical Oncology at [address] [phone] Beau Hurt MD Hypopharyngeal cancer (HCC) (Primary Dx); Abscess 12/05/2024 Travel 11/29/2024 Documentation - Oncology Nurse Navigator ONCOLOGY IP [address] [place] [phone] Vicky Reinoso RN 11/28/2024 3:15 PM EST Office Visit [facility] Medical Oncology at [address] [phone] Beau Hurt MD Bellantuono, Angela, APRN Hypopharyngeal cancer (HCC) (Primary Dx) 11/28/2024 Travel 11/28/2024 Orders Only [facility] Medical Oncology at [address] [phone] Kayla Escobar APRN 11/24/2024 Orders Only [facility] [address] [place] [address] Robert Tong, Neck mass (Primary Dx); Hypopharyngeal cancer (HCC); Head and neck cancer (HCC); Pre-procedural laboratory examination 11/22/2024 2:30 PM EST Office Visit [facility] [address] [facility] [address] [place] [phone] Robert Tong DO Neck mass (Primary Dx); Hypopharyngeal cancer (HCC); Head and neck cancer (HCC) 11/22/2024 12:56 PM EST - 11/22/2024 11:59 PM EST Hospital Encounter [facility] OP SPECIMEN LAB [address] [place] [address] Beau Hurt MD Discharge Disposition: Home or Self Care 11/22/2024 Orders Only [facility] LAB INPATIENT [address] [place] [address] Don Ratliff MD 11/21/2024 2:30 PM EST Office Visit [facility] Medical Oncology at [address] [phone] Beau Hurt MD Hypopharyngeal cancer (HCC) (Primary Dx) 11/21/2024 Orders Only [facility] PATHOLOGY SCAN Adam Man MD Hypopharyngeal cancer (HCC) (Primary Dx) 11/21/2024 Travel 11/20/2024 Scanned Document [facility] Medical Oncology at [address] [place] [phone] Beau Hurt MD 11/17/2024 Nurse Triage [facility] Medical Oncology at [address] [address] Alyssia Bailey, JIGAR 11/17/2024 Orders Only [facility] Medical Oncology at [address] [address] Alyssia Bailey, JIGAR Infected wound (Primary Dx) 11/16/2024 Nurse Triage [facility] Medical Oncology at [address] [phone] Alyssia Bailey, JIGAR 11/14/2024 Nurse Triage [facility] Medical Oncology at [address] [address] Alyssia Bailey RN 11/13/2024 9:45 AM EST - 11/13/2024 11:05 AM EST Surgery [facility] Radiology [address] [facility] [place] [address] Kerri Canseco PA-C US Biopsy-Lymph Node (Superficial)-Left 11/08/2024 3:54 PM EST - 11/15/2024 6:04 PM [facility] Hospital Encounter HH EMERGENCY OBS [address] [facility] [place] [address] Brianna Medeiros MD Patel, MD Lillian Grissom Kamal, MD [place], MD Mukund Lewis Gagan, MD Hamilton, MD Rosey Rodriguez, MD Shandra Sheets, Didier White MD Lymphadenopathy (Primary Dx); Abscess; Infected wound Discharge Disposition: Home with Health Care Services from Last 3 Months Immunizations Immunization Administration Dates Next Due Influenza, Trivalent (FLUAD) Adjuvanted Preservative Free IM 65 years and older 08/18/2024() Social History Tobacco Use Types Packs/Day Years Used Date Smoking Tobacco: Former Cigarettes Tobacco Cessation:Counseling Given: Not Answered Alcohol Use Standard Drinks/Week Comments Yes 0 (1 standard drink = 0.6 oz pur e alcohol) [facility] Utilities Answer Date Recorded In the past 12 months has e [employer], gas, oil, or water Narrative threatened to shut off services in your [...] any time in the past 12 m [facility], were you homeless or living in a assisted (including now)? No 11/10/2024 Sex and Gender Information Value Date Recorded Sex Assigned at Male 06/12/2024 10:57 AM EDT Legal Sex Male 10:53 AM EDT Gender Identity Male 06/12/2024 10:57 AM EDT Sexual Orientation Heterosexual (straight) 06/12 10:57 AM EDT Last Filed Vital Signs Vital Sign Reading Time Taken Comments Blood Pressure 109/56 01/26/2025 1:10 PM EDT Pulse 72 01/26/2025 10:38 AM EDT Temperature 36.2 ??C (97.1 ??F) 01/26/2025 10:38 AM E DT Respiratory Rate 16 01/26/2025 10:38 AM EDT Oxygen Saturation 99% 01/26/2025 10:38 AM EDT Inhaled Oxygen Concentration - - Weight 83.6 kg (184 lb 4.8 oz) 01/26/2025 10:38 AM EDT Height 173 cm (5' 8.11 ) 01/26/2025 10:38 AM EDT Body Mass Index 27.93 01/26/2025 10:38 AM EDT Plan of Treatment Upcoming Encounters Date Type Department Care Team (Late st Contact Info) Description 02/09/2025 2:40 PM EDT Hospital Encounter [facility] [address] [address] Kayla Escobar, SKIP HOIST OPERATOR [address] [place] [place] [address] 02/09/2025 2:50 PM EDT Appointment [address] [phone] Kayla Escobar, SKIP HOIST OPERATOR [address] [place] [address] 02/16/2025 9:45 AM EDT Office Visit [facility] Medical Oncology at [address] [phone] Sherita Khan, SKIP HOIST OPERATOR [address] [place] [place], [place] [address] 02/16/2025 10:30 AM EDT Infusion [facility] [place] [facility]fusion [facility] [address] [place] [phone] Beau Hurt MD [address] [place] [address] Health Maintenance Due Date Last Done Comments Hepatitis C Virus Screening 1957 DTaP/Tdap/Td Vaccines (1 - Tdap) 1976 Pneumococcal Vaccines 50+ (1 of 2 - PCV) 1976 Zoster (Shingles) Vaccine (1 of 2) 1976 Colonoscopy 2002 RSV Vaccine 60 years and older and Patients (1 - Risk 60-74 years 1-dose series) 2017 COVID-19 Vaccine (3 - Pfizer risk series) 03/18/2021 02/18/2021, 01/23/2021 Abdominal Aortic Aneurysm (AAA) Screening 2022 Influenza Vaccine 04/27/2025 09/27/2018, , 09/27/2018, Additional history exists Hepatitis B Vaccines Aged Out No long er eligible based on patient's age to complete this topic Goals Goal Patient Goal Type Associated Problems Recent Progress Patient-Stated? Author LTG 1 Speech Therapy No Arlen Valenzuela CCC-SLP Note: The patient will tolerate a least restrictive diet to maintain oral nutrition throughout radiation therapy. ST STG 1 Speech Therapy No Arlen Valenzuela CCC-GUITAR REPAIRER Note: The patient will complete pharyngeal strengthening exercises: supraglottic swallow, alma maneuver, effortful swallow to improve tongue base retraction, hyolaryngeal excursion, airway protection, and clearance of the bolus through the pharynx with 100% accuracy in 5/[address] STG 2 Speech Therapy No Arlen Valenzuela CCC-GUITAR REPAIRER Note: The patient will complete lingual strengthening/resistance, lingual elevation and depression, lingual lateralization, mandibular range of motion, and labial strengthening exercises throughout radiation therapy to ensure functional strength and range of motion of oral cavity structures to maintain functional diet tolerance. The patient will complete 6/6 exercises with 100% accuracy. [facility] 3 Speech Therapy No Arlen Valenzuela CCC-GUITAR REPAIRER Note: The patient will demonstrate basic knowledge on oral hygiene, xerostomia management, and dysgluesia and implement recommended strategies in his daily routine to improve oral intake to maintain oral nutrition throughout radiation therapy. Medical Devices Implanted Type Area Township Clerk Device Identifier Shelf Expiration Date Model / Serial / Lot [place] [employer] D412 Perciva Mini Icd [id number] Implanted:11/12 (Quantity not on file) ICD [employer] D412 PERCIVA MINI ICD / [id number] / [place] [employer] 0673 [place] 4-Front S [id number] Implanted:11/12 (Quantity not on file) Lead [employer] 0673 RELIANCE 4-FRONT S / [id number] / Procedures Procedure Name Priority Date/Time Associated Diagnosis Comments HOME CARE SIGNED ORDERS Routine 02/06/2025 3:59 PM EDT HOME CARE SIGNED ORDERS Routine 02/06/2025 3:52 PM EDT POCT COMPLETE BLOOD COUNT (ONCOLOGY - INTERFACED NO CHARGE) Routine 01/26/2025 11:19 AM EDT Hypopharyngeal cancer (HCC) COMPREHENSIVE METABOLIC PANEL Routine 01/26/2025 11:19 AM EDT Hypopharyngeal cancer (HCC) LIVIA ARCHIVE FOR REFERENCE ONLY CR Routine 01/22/2025 2:[address] HEAD ARCHIVE FOR REFERENCE ONLY Routine 01/22/2025 2:42 PM EDT LIVIA ARCHIVE FOR REFERENCE ONLY CR Routine 01/22/2025 2:[address] HEAD ARCHIVE FOR REFERENCE ONLY Routine 01/22/2025 2:37 PM EDT CR EXTREMITY RIGHT ARCHIVE FOR REFERENCE ONLY Routine 01/22/2025 2:37 PM EDT HOME CARE SIGNED ORDERS Routine 01/19/2025 8:21 AM EDT HOME CARE SIGNED ORDERS Routine 12/26/2024 1:40 PM EDT POCT COMPLETE BLOOD COUNT (ONCOLOGY - INTERFACED NO CHARGE) Routine 12/15/2024 1:42 PM EDT Hypopharyngeal cancer (HCC) MAGNESIUM Routine 12/15/2024 1:42 PM EDT Hypopharyngeal cancer (HCC) LACTATE DEHYDROGENASE (LDH) Routine 12/15/2024 1:42 PM EDT Hypopharyngeal cancer (HCC) COMPREHENSIVE METABOLIC PANEL Routine 12/15/2024 1:42 PM EDT Hypopharyngeal cancer (HCC) TSH, HIGHLY SENSITIVE Routine 12/12/2024 11:07 AM EDT Head and neck cancer (HCC) MAGNESIUM Routine 12/12/2024 11:07 AM EDT Head and neck cancer (HCC) COMPREHENSIVE METABOLIC PANEL Routine 12/12/2024 11:07 AM EDT Head and neck cancer (HCC) COMPLETE BLOOD COUNT, WITH DIFFERENTIAL Routine 12/12/2024 11:07 AM EDT Head and neck cancer (HCC) CT SOFT TISSUE NECK W/CONTRAST Routine 12/07/2024 3:16 PM EDT Neck mass Hypopharyngeal cancer (HCC) Head and neck cancer (HCC) POCT COMPLETE BLOOD COUNT (ONCOLOGY - INTERFACED NO CHARGE) Routine 11/28/2024 3:07 PM EST Hypopharyngeal cancer (HCC) MAGNESIUM Routine 11/28/2024 3:07 PM EST Hypopharyngeal cancer (HCC) LACTATE DEHYDROGENASE (LDH) Routine 11/28/2024 3:07 PM EST Hypopharyngeal cancer (HCC) COMPREHENSIVE METABOLIC PANEL Routine 11/28/2024 3:07 PM EST Hypopharyngeal cancer (HCC) HX OUTSIDE ORDER Routine 11/22/2024 11:2 8 PM EST POCT COMPLETE BLOOD COUNT (ONCOLOGY - INTERFACED NO CHARGE) Routine 11/21/2024 2:19 PM EST Hypopharyngeal cancer (HCC) COMPREHENSIVE METABOLIC PANEL Routine 11/21/2024 2:19 PM EST Hypopharyngeal cancer (HCC) LACTATE DEHYDROGENASE (LDH) Routine 11/21/2024 2:19 PM EST Hypopharyngeal cancer (HCC) MAGNESIUM Routine 11/21/2024 2:19 PM EST Hypopharyngeal cancer (HCC) US BIOPSY-LYMPH NODE (SUPERFICIAL)-LEFT Routine 11/13/2024 11:21 AM EST Lymphadenopathy MISCELLANEOUS LAB TEST Routine 02/17/202 5 10:35 AM EST BASIC METABOLIC PANEL STAT 11/13/2024 4:32 AM EST COMPLETE BLOOD COUNT, WITHOUT DIFFERENTIAL STAT 11/13/2024 4:32 AM EST CYTOGENETICS REPORT Routine 11/13/2024 1 2:00 AM EST PATHOLOGY REPORT Routine 11/13/2024 12:0 0 AM EST BASIC METABOLIC PANEL STAT 11/12/2024 4:23 AM EST COMPLETE BLOOD COUNT, WITHOUT DIFFERENTIAL STAT 11/12/2024 4:23 AM EST HEMOGLOBIN A1C WITH ESTIMATED AVERAGE GLUCOSE STAT 11/11/2024 7:24 AM EST BASIC METABOLIC PANEL STAT 11/11/2024 7:24 AM EST COMPLETE BLOOD COUNT, WITHOUT DIFFERENTIAL STAT 11/11/2024 7:24 AM EST from Last 3 Months Results * HOME CARE SIGNED ORDERS (02/06/2025 3:59 PM EDT) Only the most recent of4 resultswithin the time period is included. us Scan Oncology HX AMB PROCEDURES NO RESULTS ROU TING Final Result * (ABNORMAL) POCT Complete Blood Count (Oncology) (01/26/2025 11:19 AM EDT) Only the most recent of4 resultswithin the time period is included. White Blood Cell Count 2.8(L) 4.0 - 11.0 Thou/uL 01/26/2025 11:28 AM EDT [facility] Red Blood Cell Count 4.12(L) 4.50 - 6.20 Mil/uL 01/26/2025 11:28 AM EDT [facility] Hemoglobin 11.4(L) 13.0 - 17.7 g/dL 01/26/2025 11:28 AM EDT [facility] Hematocrit 37.9(L) 39.0 - 54.0 % 01/26/2025 11:28 AM EDT [facility] MCV 92 80 - 100 fL 01/26/2025 11:28 AM EDT [facility] MCH 27.7 27.0 - 31.0 pg 01/26/2025 11:28 AM EDT [facility] MCHC 30.1 30.0 - 36.0 g/dL 01/26/2025 11:28 AM EDT [facility] RDW 16.2(H) 11.5 - 14.5 % 01/26/2025 11:28 AM EDT [facility] Platelet Count 159 150 - 450 Thou/uL 01/26/2025 11:28 AM EDT [facility] MPV 9.0 7.5 - 12.5 fL 01/26/2025 11:28 AM EDT [facility] Neutrophils Auto 69.8 % 01/27/20 25 11:28 AM EDT [facility] Abs Neutrophils Auto 1.90(L) 2.00 - 7.50 Thou/uL 01/26/2025 11:28 AM EDT [facility] Lymphocytes Auto 13.4 % 01/27/20 11:28 AM EDT [facility] Abs Lymphocytes Auto <1.00(L) 1.50 - 4.50 Thou/uL 01/26/2025 11:28 AM EDT [facility] Mixed Mononuclear Auto 16.8 % 01/26/2025 11:28 AM EDT [facility] Abs Mixed Mononuclear Auto <1.00 0.20 - 1.90 Thou/uL 01/26/2025 11:28 AM EDT [facility] Blood Blood specimen / Unknown 01/26/2025 11:19 AM EDT 01/26/2025 11:28 AM EDT us Kayla Bellantuono SKIP HOIST OPERATOR POCT ORDERABLES - ONCOLO GY Final Result [facility] [place] [address] [place] [address], [facility] [place] [place] [address] [place] [address] * (ABNORMAL) Comprehensive Metabolic Panel (01/26/2025 11:19 AM EDT) Only the most recent of5 resultswithin the time period is included. Glucose 110(H) 65 - 99 mg/dL 01/26/2025 8:10 PM [facility] Comment:Fasting: <100 mg/dL, Non-Fasting: <200 mg/dL (ADA 2004) Blood Urea Nitrogen (BUN) 12 8 - 21 mg/dL 01/26/2025 8:10 PM [facility] Creatinine 1.0 0.5 - 1.3 mg/dL 01/26/2025 8:10 PM [facility] eGFR 82 >59 01/26/2025 8:10 PM [facility] Comment:CKD-EPI (2020) in mL /min/1.73 sq meters. Sodium 141 136 - 145 mmol/L 01/26/2025 8:10 PM [facility] Potassium 4.4 3.4 - 5.3 mmol/L 01/26/2025 8:10 PM [facility] Chloride 104 98 - 107 mmol/L 01/26/2025 8:10 PM [facility] CO2 28 22 - 33 mmol/L 01/26/2025 8:10 PM [facility] Calcium 8.9 8.7 - 10.5 mg/dL 01/26/2025 8:10 PM [facility] Alkaline Phosphatase 76 45 - 128 U/L 01/26/2025 8:10 PM [facility] Aspartate Aminotrans (AST) 33 10 - 55 U/L 01/26/2025 8:10 PM [facility] Alanine Aminotrans (ALT) 26 10 - 55 U/L 01/26/2025 8:10 PM [facility] Bilirubin, Total 0.3 0.2 - 1.0 mg/dL 01/26/2025 8:10 PM [facility] Protein, Total 6.3 6.3 - 8.3 g/dL 01/26/2025 8:10 PM EDT [facility] Albumin 3.6 3.4 - 4.8 g/dL 01/26/2025 8:10 PM EDT [facility] BUN/Creatinine Ratio 12 10.0 - 25.0 Ratio 01/26/2025 8:10 PM EDT [facility] Globulin 2.7 1.5 - 3.9 g/dL 01/26/2025 8:10 PM EDT [facility] Albumin/Globulin Ratio 1.3 1.0 - 3.0 Ratio 01/26/2025 8:10 PM EDT [facility] Anion Gap 9 7 - 17 01/26/2025 8:10 PM T [facility] Blood Blood specimen / Unknown 01/26/2025 11:19 AM EDT 01/26/2025 7:40 PM EDT Kayla Escobar SKIP HOIST OPERATOR LAB BLOOD ORDERABLES Fin al Result Performing Organization Address [facility] Co de Phone Number [address] [address], [address] [address] * LIVIA Archive for reference only RF (01/22/2025 2:45 PM EDT) Only the most recent of2 resultswithin the time period is included. Narrative [facility] 01/22/2025 2:37 PM EDT This order has been auto-finalized and does not contain a result. us File Room Provider IMG DIGITIZE FILMS Final Resu lt Performing Organization Address City/[facility]/ZIP Co de Phone Number [place] [phone] * CT Head Archive for Reference Only (01/22/2025 2:42 PM EDT) Only the most recent of2 resultswithin the time period is included. Narrative [place] - 01/22/2025 2:42 PM EDT This study has been auto finalized and does not contain a result. us File Room Provider IMG DIGITIZE FILMS Final Resu lt Performing Organization Address [facility] de Phone Number MERLY [phone] * CR Extremity Right Archive for Reference only (01/22/2025 2:37 PM EDT) Letty MERLY - 01/22/2025 2:37 PM EDT This study has been auto finalized and does not contain a result. us File Room Provider IMG DIGITIZE FILMS Final Resu lt Performing Organization Address [facility] de Phone Number MERLY [phone] * MAGNESIUM (12/15/2024 1:42 PM EDT) Only the most recent of4 resultswithin the time period is included. Magnesium 1.9 1.6 - 2.7 mg/dL 12/15/2024 10:07 PM EDT [facility] Blood Blood specimen / Unknown 12/15/2024 1:42 PM EDT 12/15/2024 9:27 PM EDT Beau Hurt MD LAB BLOOD ORDERABLES Final Res ult Performing Organization Address [facility] [place] [address], [place] [address] * LACTATE DEHYDROGENASE (LDH) (12/15/2024 1:42 PM EDT) Only the most recent of3 resultswithin the time period is included. Lactate Dehydrogenase (LDH) 202 120 - 260 U/L 12/15/2024 10:07 PM EDT [facility] Blood Blood specimen / Unknown 12/15/2024 1:42 PM EDT 12/15/2024 9:27 PM EDT Beau Hurt MD LAB BLOOD ORDERABLES Final Res ult Performing Organization Address [facility] [place] [address], [place] [facility] [address] [place] [address] * (ABNORMAL) Complete Blood Count, with Differential (12/12/2024 11:07 AM EDT) White Blood Cell Count 4.7 4.0 - 11.0 Thou/uL 12/12/2024 3:47 PM [facility] Platelet Count 186 150 - 450 Thou/uL 12/12/2024 3:47 PM [facility] Hemoglobin 11.1(L) 13.0 - 17.7 g/dL 12/12/2024 3:47 PM [facility] Hematocrit 36.6(L) 39.0 - 54.0 % 12/12/2024 3:47 PM [facility] Red Blood Cell Count 3.89(L) 4.50 - 6.20 Mil/uL 12/12/2024 3:47 PM [facility] MCV 94 80 - 100 fL 12/12/2024 3:47 PM [facility] MCH 28.5 27.0 - 31.0 pg 12/12/2024 3:47 PM [facility] MCHC 30.3 30.0 - 36.0 g/dL 12/12/2024 3:47 PM [facility] RDW 15.4(H) 11.5 - 14.5 % 12/12/2024 3:47 PM [facility] MPV 10.9 7.5 - 12.5 fL 12/12/2024 3:47 PM [facility] Neutrophils Auto 82.7 % 12/13/19 3:47 PM [facility] Immature Granulocytes 0.4 % 12/12/2024 3:47 PM [facility] Lymphocytes Auto 8.2 % 12/13/19 3:47 PM [facility] Monocytes Auto 7.0 % 12/12/2024 3:47 PM [facility] Eosinophils Auto 1.3 % 12/13/19 3:47 PM [facility] Basophils Auto 0.4 % 12/12/2024 3:47 PM [facility] Abs Neutrophils Auto 3.92 2.00 - 7.50 Thou/uL 12/12/2024 3:47 PM [facility] Abs Immature Granulocytes 0.02 0.00 - 0.10 Thou/uL 12/12/2024 3:47 PM EDT [facility] Abs Lymphocytes Auto 0.39(L) 1.50 - 4.50 Thou/uL 12/12/2024 3:47 PM EDT [facility] Abs Monocytes Auto 0.33 0.20 - 1.50 Thou/uL 12/12/2024 3:47 PM EDT [facility] Abs Eosinophils Auto 0.06 0.00 - 0.70 Thou/uL 12/12/2024 3:47 PM EDT [facility] Abs Basophils Auto 0.02 0.00 - 0.20 Thou/uL 12/12/2024 3:47 PM EDT [facility] Blood Blood specimen / Unknown 12/12/2024 11:07 AM EDT 12/12/2024 3:23 PM EDT us Ro Alcala SKIP HOIST OPERATOR LAB BLOOD ORDERABLES Final Result Performing Organization Address City/[facility]/[place] [address], [place] [address] * TSH, HIGHLY SENSITIVE (12/12/2024 11:07 AM EDT) TSH, Highly Sensitive 0.43 0.27 - 4.20 mIU/L 12/12/2024 4:02 PM EDT [facility] Blood Blood specimen / Unknown 12/12/2024 11:07 AM EDT 12/12/2024 3:23 PM EDT us Ro Alcala SKIP HOIST OPERATOR LAB BLOOD ORDERABLES Final Result [address] [address], [address] [address] * CT Soft tissue neck w/contrast (12/07/2024 3:16 PM EDT) Anatomical Region Laterality Modality Neck Computed Tomogra phy 12/08/2024 3:54 PM EDT Impressions 12/08/2024 4:09 PM EDT 1. ??Large heterogeneously hypoenhancing left infrahyoid neck mass/metastatic adenopathy. There is medial deviation and mild to moderate luminal narrowing of the left internal jugular vein. No thrombosis. The left common carotid artery ascends along the posterior medial margin of the mass without significant deviation to its course and is not enveloped by the mass. 2. ??Mild left axillary lymphadenopathy which is likely malignant in light of moderate uptake on recent PET. 3. ??Diffuse mucosal thickening in the supra glottic larynx, likely related to posttreatment effects. Narrative 12/08/2024 4:09 PM EDT EXAM: CT SOFT TISSUE NECK W/CONTRAST on 12/07/2024 2:46 PM INDICATION: MAYKEL DE LA ROSA is a 69 years old Male with a submitted history of to assess the status of the great vessels in the left neck and relationship of the mass to the clavicle. COMPARISON: PET/CT dated 10/31/2024. TECHNIQUE: Routine multidetector helical CT was performed through the neck from the thoracic inlet through the skull base following the administration of 80 mL of Omnipaque 350 intravenous contrast. Iterative reconstruction technique was employed to reduce patient radiation exposure. FINDINGS: Brain: The base of the brain is unremarkable. Orbits: The orbits are unremarkable. Sinuses: Mild mucosal thickening along the floors of the bilateral maxillary sinuses. Skull base: No erosive changes. The skull base foramina are symmetric. Salivary glands: The parotid and submandibular glands are normal. Aerodigestive tract: The mucosal surfaces of the nasopharynx, oropharynx, base of tongue and larynx are roughly symmetric, with diffuse mucosal thickening in the supraglottic larynx, likely related to posttreatment effects. Thyroid: The thyroid gland is normal. Vessels: The left common carotid artery ascends along the posterior medial margin of the mass without significant deviation to its course. It is not enveloped by the mass. The left internal jugular vein is medially deviated and mild to moderately narrowed. There is no thrombosis. The left subclavian vein is patent. There is bilateral carotid bifurcation calcific atherosclerotic disease with moderate appearing stenosis of the proximal internal carotid arteries. Lymph nodes: There is a large heterogeneously enhancing presumed [place] mass in the left infrahyoid neck deep to the sternocleidomastoid muscle, difficult to separate from the overlying muscle. This measures approximately 6.3 x 4.9 cm transaxially by 6.0 cm craniocaudally. There is a mildly enlarged left axillary lymph node measuring 1.0 cm in transaxial short axis corresponding with moderately PET avid lymph node on recent PET. Other soft tissues: No fluid collections are seen in the neck. Cervical spine: There is mild multilevel degenerative change in the cervical spine without significant spinal canal stenosis appreciated. Lung apices/superior mediastinum: The lung apices are clear. ??The superior mediastinum is unremarkable. Procedure Note Pablito Burnett MD - 12/08/2024 EXAM: CT SOFT TISSUE NECK W/CONTRAST on 12/07/2024 2:46 PM INDICATION: MAYKEL DE LA ROSA is a 69 years old Male with a submittedhistory of to assess the status of the great vessels in the left neck andrelationship of the mass to the clavicle. COMPARISON: PET/CT dated 10/31/2024. TECHNIQUE: Routine multidetector helical CT was performed through the neckfrom the thoracic inlet through the skull base following theadministration of 80 mL of Omnipaque 350 intravenous contrast. Iterativereconstruction technique was employed to reduce patient radiation exposure. FINDINGS: Brain: The base of the brain is unremarkable. Orbits: The orbits are unremarkable. Sinuses: Mild mucosal thickening along the floors of the bilateralmaxillary sinuses. Skull base: No erosive changes. The skull base foramina are symmetric. Salivary glands: The parotid and submandibular glands are normal. Aerodigestive tract: The mucosal surfaces of the nasopharynx, oropharynx,base of tongue and larynx are roughly symmetric, with diffuse mucosalthickening in the supraglottic larynx, likely related to posttreatmenteffects. Thyroid: The thyroid gland is normal. Vessels: The left common carotid artery ascends along the posterior medialmargin of the mass without significant deviation to its course. It is notenveloped by the mass. The left internal jugular vein is medially deviatedand mild to moderately narrowed. There is no thrombosis. The left subclavian vein is patent.There is bilateral carotid bifurcation calcific atherosclerotic diseasewith moderate appearing stenosis of the proximal internal carotidarteries. Lymph nodes: There is a large heterogeneously enhancing presumed nodalmass in the left infrahyoid neck deep to the sternocleidomastoid muscle,difficult to separate from the overlying muscle. This measuresapproximately 6.3 x 4.9 cm transaxially by 6.0 cm craniocaudally. There is a mildly enlarged left axillary lymph nodemeasuring 1.0 cm in transaxial short axis corresponding with moderatelyPET avid lymph node on recent PET. Other soft tissues: No fluid collections are seen in the neck. Cervical spine: There is mild multilevel degenerative change in thecervical spine without significant spinal canal stenosis appreciated. Lung apices/superior mediastinum: The lung apices are clear. The superiormediastinum is unremarkable. IMPRESSION: 1. Large heterogeneously hypoenhancing left infrahyoid neckmass/metastatic adenopathy. There is medial deviation and mild to moderateluminal narrowing of the left internal jugular vein. No thrombosis. Theleft common carotid artery ascends along the posterior medial margin of the mass without significant deviation to itscourse and is not enveloped by the mass. 2. Mild left axillary lymphadenopathy which is likely malignant in lightof moderate uptake on recent PET. 3. Diffuse mucosal thickening in the supra glottic larynx, likely relatedto posttreatment effects. Robert Tong DO IMG CT ORDERABLES Final Result * OUTSIDE ORDER (11/22/2024 11:28 PM EST) External Provider MD [facility] PROCEDURES Final Res ult * US BIOPSY-LYMPH NODE (SUPERFICIAL)-LEFT (11/13/2024 11:21 AM EST) Anatomical Region Laterality Modality Ultrasound 11/13/2024 10:2 8 AM EST Impressions 11/14/2024 12:55 PM EST Ultrasound-guided biopsy of left neck mass. PLAN: Specimen(s) sent for evaluation. PROCEDURE SUMMARY: - Percutaneous US-guided left neck mass core biopsy - Additional procedure(s): None PROCEDURE DETAILS: PRE-PROCEDURE: Reference imaging for biopsy target: PET/CT 10/31/2024 Consent: Informed consent for the procedure including risks, benefits and alternatives was obtained and time-out was performed prior to the procedure. Preparation: The site was prepared and draped using maximal sterile barrier technique including cutaneous antisepsis. ANESTHESIA/SEDATION: Level of anesthesia/sedation: No sedation Anesthesia/sedation administered by: Independent trained observer under attending supervision with continuous monitoring of the patient's level of consciousness and physiologic status Total intra-service sedation time (minutes): Not applicable IMAGING PRIOR TO BIOPSY: The patient was positioned supine. Initial ultrasound was performed. Biopsy target: - Location: Left neck mass Other findings: None BIOPSY: Local anesthesia was administered. Under US guidance, the biopsy needle was advanced to the target and biopsy was performed. Coaxial needle: 17 gauge Core needle biopsy device: Flumes Core needle size: 18 gauge Number of core specimens: 7 Specimen sent for pathology and special hematology On-site biopsy touch preparation: None ?? Additional sampling recommendations: None Preliminary assessment of sample adequacy: Not applicable NEEDLE REMOVAL: The biopsy needle was removed and a sterile dressing was applied. Tract embolization: None IMAGING FOLLOWING BIOPSY: Immediate post-biopsy ultrasound was performed. Post-biopsy imaging findings: Expected post biopsy findings, no large hematoma ADDITIONAL DETAILS: Additional description of procedure: None Equipment details: None Specimens removed: Biopsy samples as detailed above Estimated blood loss (mL): Less than 10 Standardized report: [id number] This procedure was performed and dictated by Kerri Canseco PA-C. Interpreted by: ??Kerri ANDRES Crude Tester I personally reviewed the images and the resident's preliminary report and AGREE with the report as it is now presented ([email or web address]). Narrative 11/14/2024 12:55 PM EST PROCEDURE: IR ULTRASOUND-GUIDED BIOPSY REFERRING PROVIDER: Dr. 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 Procedure Note Mert Hoover MD - 11/14/2024 PROCEDURE: IR ULTRASOUND-GUIDED BIOPSY REFERRING PROVIDER: Dr. 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 IMPRESSION: Ultrasound-guided biopsy of left neck mass. PLAN: Specimen(s) sent for evaluation. PROCEDURE SUMMARY: - Percutaneous US-guided left neck mass core biopsy - Additional procedure(s): None PROCEDURE DETAILS: PRE-PROCEDURE: Reference imaging for biopsy target: PET/CT 10/31/2024 Consent: Informed consent for the procedure including risks, benefits and alternatives was obtained and time-out was performed prior to the procedure. Preparation: The site was prepared and draped using maximal sterile barrier technique including cutaneous antisepsis. ANESTHESIA/SEDATION: Level of anesthesia/sedation: No sedation Anesthesia/sedation administered by: Independent trained observer under attending supervision with continuous monitoring of the patient's level of consciousness and physiologic status Total intra-service sedation time (minutes): Not applicable IMAGING PRIOR TO BIOPSY: The patient was positioned supine. Initial ultrasound was performed. Biopsy target: - Location: Left neck mass Other findings: None BIOPSY: Local anesthesia was administered. Under US guidance, the biopsy needle was advanced to the target and biopsy was performed. Coaxial needle: 17 gauge Core needle biopsy device: CorvoFireDrillMet Core needle size: 18 gauge Number of core specimens: 7 Specimen sent for pathology and special hematology On-site biopsy touch preparation: None Additional sampling recommendations: None Preliminary assessment of sample adequacy: Not applicable NEEDLE REMOVAL: The biopsy needle was removed and a sterile dressing was applied. Tract embolization: None IMAGING FOLLOWING BIOPSY: Immediate post-biopsy ultrasound was performed. Post-biopsy imaging findings: Expected post biopsy findings, no large hematoma ADDITIONAL DETAILS: Additional description of procedure: None Equipment details: None Specimens removed: Biopsy samples as detailed above Estimated blood loss (mL): Less than 10 Standardized report: [id number] This procedure was performed and dictated by Kerri Canseco PA-C. Interpreted by: Kerri ANDRES Crude Tester I personally reviewed the images and the resident's preliminary report and AGREE with the report as it is now presented ([email or web address]). us Lucius Cohen PA-C IMG IRUS ORDERABLES Final R esult * - Miscellaneous Test (11/13/2024 10:35 AM EST) Pathologist [facility] Test Name 22C3 PDL1 TESTING 1 BLCOK A1 HS25 3570 L NECK MASS 11/22/2024 1:29 PM EST [facility] Result See separate Pathology report. 11/28/2024 9:07 AM EST [facility] Comment:Results scanned into Copath by the Laboratory AP Dept. 11/28/2024 Referral Laboratory Performed by [facility] 11/22/2024 1:29 PM EST [facility] 11/13/2024 10:3 5 AM EST 11/22/2024 1:27 PM EST us Beau Hurt MD BODY FLUIDS AND STOOLS ORDERAB LES Final Result Performing Organization Address City/State/[facility] Co de Phone Number [facility] [address] [place] [address], [id number] [place] [address] * (ABNORMAL) Complete Blood Count WITHOUT Differential - in AM (11/13/2024 4:32 AM EST) Only the most recent of3 resultswithin the time period is included. Pathologist [facility] White Blood Cell Count 5.9 4.0 - 11.0 Thou/uL 11/13/2024 5:12 AM EST [facility] Platelet Count 199 150 - 450 Thou/uL 11/13/2024 5:12 AM [facility] Hemoglobin 8.2(L) 13.0 - 17.7 g/dL 11/13/2024 5:12 AM [facility] Hematocrit 26.5(L) 39.0 - 54.0 % 11/13/2024 5:12 AM [facility] Red Blood Cell Count 2.70(L) 4.50 - 6.20 Mil/uL 11/13/2024 5:12 AM [facility] MCV 98 80 - 100 fL 11/13/2024 5:12 AM [facility] MCH 30.4 27.0 - 31.0 pg 11/13/2024 5:12 AM [facility] MCHC 30.9 30.0 - 36.0 g/dL 11/13/2024 5:12 AM [facility] RDW 16.2(H) 11.5 - 14.5 % 11/13/2024 5:12 AM [facility] MPV 9.7 7.5 - 12.5 fL 11/13/2024 5:12 AM [facility] Blood Blood specimen / Unknown 11/13/2024 4:32 AM EST 11/13/2024 5:07 AM EST us Carlos Yates SKIP HOIST OPERATOR LAB BLOOD [place] [address], [place] [address] * (ABNORMAL) Basic Metabolic Panel (AM) (11/13/2024 4:32 AM EST) Only the most recent of3 resultswithin the time period is included. Glucose 114(H) 65 - 99 mg/dL 11/13/2024 5:31 AM [facility] Comment:Fasting: <100 mg/dL, Non-Fasting: <200 mg/dL (ADA 2005) Blood Urea Nitrogen (BUN) 9 8 - 21 mg/dL 11/13/2024 5:31 AM [facility] Creatinine 1.1 0.5 - 1.3 mg/dL 11/13/2024 5:31 AM [facility] eGFR 74 >59 11/13/2024 5:31 AM [facility] Comment:CKD-EPI (2020) in mL /min/1.73 sq meters. Sodium 139 136 - 145 mmol/L 11/13/2024 5:31 AM [facility] Potassium 3.7 3.4 - 5.3 mmol/L 11/13/2024 5:31 AM [facility] Chloride 103 98 - 107 mmol/L 11/13/2024 5:31 AM [facility] CO2 29 22 - 33 mmol/L 11/13/2024 5:31 AM [facility] Anion Gap 7 7 - 17 11/13/2024 5:31 AM [facility] Calcium 8.6(L) 8.7 - 10.5 mg/dL 11/13/2024 5:31 AM [facility] BUN/Creatinine Ratio 8(L) 10.0 - 25.0 Ratio 11/13/2024 5:31 AM [facility] Blood (Plasma/Serum) 11/13/2024 4:32 AM EST 11/13/2024 5:07 AM EST Carlos Yates APRN LAB BLOOD [place]AB[place] [address], [place] [address] * Cytogenetics Report (11/13/2024 12:00 AM EST) Report [facility] [id number] ?? CLIA ID [id number] [address] [place] [address] ??[id number] / [phone] Genetics Testing Report PATIENT NAME: MAYKEL DE LA ROSA [facility] REC NUMBER: [id number] (AGE): 1955 (Age: 69) SPEC NUMBER: [id number] DATE OBTAINED: 11/13/2024 DIAGNOSIS: Left neck mass block A2 was collected on 11/13/2024. ??See pathology report [id number]. Tumor Cellularity is 60%. Diagnosis/Indicatio n: Poorly Differentiated Non-Small Cell Carcinoma Specimen: Left Neck Mass block A2, estimated tumor cellularity (60%) POSITIVE: Tier I (clinically significant, clinically actionable variants): ? FGFR3: NM_000142.5, c.746C>G, p.S249C, VAF=26.7% ?(see comment) Tier II (variants of potential clinical significance): ? TP53: NM_000546.6, c.818G>T, p.R273L, VAF=48.7% ? (see comment) CDKN2A: GENE DELETION (0.48 Fold Change) = 1 COPY ?(see comment) Low Level Copy Number Variations (CNV) Of Unknown Clinical Significance (Tier III): STK11: GENE DELETION (0.66 Fold Change) = 1 COPY ? Interpretation on any of the additional copy number variations (CNVs) will be provided upon request. See below for a complete list of genes covered by the assay. VARIANTS OF UNKNOWN SIGNIFICANCE (Tier III): ? FBXW7: NM_033632.3, c.1498C>T, p.H500Y, VAF=34.4% ? See below for a complete list of genes covered by the assay. RNA FUSIONS: ?? NEGATIVE: NO FUSIONS WERE DETECTED No pathogenic fusions were identified in targeted regions of 64 genes covered by this assay. See below for a complete list of genes covered by the assay. TRIALS ([facility]): A match was identified for the following trials(s) that are enrolling patients at [facility]: Futibatinib (LYTGOBI) :: FGFR3 fusion, rearrangement, or mutation :: Malignant neoplasm of bronchus and lung Additional eligibility requirements and considerations relevant to enrollment in clinical trials apply. Further information regarding this trial may be found here [email or web address] ??For providers seeking additional information regarding screening/enrollmen t, please message the [facility] EPIC pool ( p TAPUR Study ). COMMENT: FGFR3: The c.746C>G, p.S249C missense, activating mutation was detected in exon 7/18 of the FGFR3 gene at 26.7% variant allelic frequency. ?? The fibroblast growth factor receptor FGFR3 is a receptor tyrosine kinase that activates the COOPER/MAPK, PI3K/AKT, PLC/PKC, and BUNNY/STAT signaling pathways to promote cell proliferation and angiogenesis. This oncogenic mutation leads to ligand-independent constitutive FGFR3 activation, which is common in urothelial tumors. Treatment with the narvaez-FGFR inhibitor erdafitinib is indicated for patients with urothelial cancer harboring this mutation. In NSCLC FGFR3 activating mutations were reported in 1.6% of cases (GENIE database). In NSCLC, FGFR aberrations have also been identified as [place] compensatory bypass mechanisms of resistance to targeted therapy against mutant EGFR and mutant KRAS in lung cancer. Targeting FGFR signaling pathway is among the strategies being explored in squamous NSCLC; these efforts are supported by growth-promoting effects of FGF signaling in preclinical studies (including interactions with other pathways) and observations suggesting that FGF/FGFR-related aberrations are more common in squamous versus adenocarcinoma and other histologies. Despite promising preclinical data, clinical trials have largely shown low efficacy of these agents in lung cancer patients withFGFRalterations . In one study, IHC was utilized to evaluate Fgfr3 protein expression in a cohort of [place] patients. IHC overexpression was demonstrated in 15.4% of lung squamous cell carcinoma (SCC) cases. In this cohort, a high expression of Fgfr3 was positively correlated with gender, and smoking history and predicted better prognosis. NIH-3T3 cells overexpressing this mutation are sensitive to tyrosine kinase inhibitors infigratinib, fexagratinib (DWO0884), and pemigatinib and to the monoclonal antibody vofatamab but resistant to ponatinib and pazopanib. The germline variant of this mutation is associated with thanatophoric dysplasia. (REF 1-6) TP53: The c.818G>T, p.R273L missense, inactivating mutation was detected in exon 8/11 of the TP53 gene at 48.7% variant allelic frequency. TP53 is a well-characterized tumor suppressor gene that is involved in regulating cell cycle, apoptosis, and DNA repair and damage response. Inactivating mutations in the TP53 gene are likely to confer loss of its tumor suppressor activity. Clinical phase II studies indicated that the [id number] drug APR-246 (Eprenetapopt) in combination with the hypomethylating agent azacitidine may be effective in patients with myelodysplastic syndromes (MDS) and acute myeloid leukemia (AML) with TP53 mutations. Similarly, preclinical data in solid tumors indicated a synergistic effect of APR-246 with other anti-cancer agents, such as chemotherapy in SQ70-obdjjzx cancers. Preclinical data suggests loss of TP53 tumor suppressor activity confers sensitivity towards the Wee1-inhibitor adavosertib, which may be further enhanced by combinational treatment with DNA-damaging agents. Early-phase clinical trials in DK74-cphabz ovarian cancer show a slight but significant improved response to chemotherapy in combination with adavosertib compared to placebo. In early-phase clinical studies, treatment with the VEGF-targeted antiangiogenic agent bevacizumab in combination with chemotherapy resulted in significantly prolonged PFS and OS in patients with TP53 mutated advanced solid tumors compared to treatment with temsirolimus and chemotherapy. This difference was not seen in TP53 wild-type tumors, suggesting mutated TP53 as a potential biomarker for sensitivity towards bevacizumab (REF 7-16). CDKN2A: A heterozygous deletion of the CDKN2A gene was detected with the copy-number component of the assay. The cyclin-dependent kinase inhibitor 2A (CDKN2A) is a negative regulator of CDK4 and CDK6 to block cell cycle progression through G1/S transition. Inactivating mutations are likely to cause a muhy-gj-yfpblghn due to protein truncation. Loss of CDKN2A function due to mutation or deletion can result in the activation of the CDK/RB1 cell cycle pathway and contributes to oncogenesis. Preclinical models revealed that cancer cells with CDKN2A gene deletion are sensitive to CDK4/6 inhibitors and a similar response might be expected for truncating mutations. The efficacy of CDK4/6 inhibitor therapy requires the presence of a functional RB1 protein (REF 17-21). References: 1. ?Julien Lopez. Fibroblast growth factor signaling and inhibition in nondsmall cell lung cancer and their role in squamous cell tumors. Cancer medicine 3.3 (2014): 681-692. 2. ?Ashu Riddle, et al. High expression of FGFR3 predicts a better prognosis for patients with non-small cell lung cancer in a [place] population. Journal of Thoracic Nlnjovb06.1 (2022): 101. 3. ?Abbie Trujillo, et al. Targeting the fibroblast growth factor receptor (FGFR) family in lung cancer. Cells 10.5 (2020): 1154. 4. ?Milly FELDMAN et al. Comprehensive functional evaluation of variants of fibroblast growth factor receptor genes in cancer. NPJ precision oncology. 2020; 5(1) (PubMed ID: [id number]) 5. ? Kristin SHORT. Updates and novel treatments in urothelial carcinoma. Journal of oncology pharmacy practice : official publication of the International Society of Oncology Pharmacy Practitioners. 2019 Dec; 25(3) (PubMed ID: [id number]) 6. ? Arnel ALTAMIRANO et al. Inhibitor-sensitive FGFR2 and FGFR3 mutations in lung squamous cell carcinoma. Cancer research. 2013 Apr; 73(16) (PubMed ID: [id number]) 7. ?Bryant CROCKETT, Tristin M, Jennie S, O'Bar S, Stuart J. Targeting Mutant p53 for Cancer Treatment: Moving Closer to Clinical Use? Cancers ([place]el). 2021Jun 12;14(18):4499. doi: 10.3390/fgtglvb5382 4499. PMID: 15953933; PMCID: KKA2131249. ? 8. ?Shira P, et al. Effects of Wee1 inhibitor adavosertib on patient-derived high-grade serous ovarian cancer cells are multiple and independent of homologous recombination status. Front Oncol. 2021May 19;12:535113. doi: 10.3389/fonc.2021.9 44481. PMID: 68292039; PMCID: VGF7479974. ? 9. ?Aj White, et al. CX-5461 Enhances the Efficacy of APR-246 via Induction of DNA Damage and Replication Stress in Triple-Negative Breast Cancer. Int J Mol Sci. 2020February 21;22(11):5782. doi: 10.3390/whdw6417217 2. PMID: 96689449; PMCID: OVF4722390. ? 10. ?Shay MALDONADO, et al. Eprenetapopt (APR-246) and Azacitidine vvFU73-Yptmha Myelodysplastic Syndromes. J Clin Oncol. 2020February 03;39(14):6153-5752 . doi: 10.1200/JCO.20.0234 1. Epub 2020Oct 11. PMID: 03519651; PMCID: NAV1637599. 11. ?Kai AM, et al. A Biomarker-enriched, Randomized Phase II Trial of Adavosertib (NIA2291) Plus Paclitaxel and Carboplatin for Women with [place]-sensitiveT X35-wyhivt Ovarian Cancer. Clin Cancer Res. 2019 15;26(18):6364-9446 . doi: 10.1158/5650-2887.C -20-0219. Epub 2019Mar 27. PMID: 91101850. ? 12. ?dwayne Khan AM, et al. Chemopreventive targeted treatment of head and neck precancer by Wee1 inhibition. Sci Rep. 2019 11;10(1):2330. doi: 10.1038/d53204-855- 43735-9. PMID: 06860063; PMCID: [id number]. ? 13. ?Yuki BUCHANAN, et al.LS74PQY Binding Domain Mutations Predict Progression-Free Survival of Bevacizumab Therapy in Metastatic Colorectal Cancer. Cancers ([place]). 2018Apr 25;11(8):1079. doi: 10.3390/znlzzmv9125 1079. PMID: 46628748; PMCID: KTV4214213. 14. ?Cindy S, van Nestor RM, Desiree AC, et al. Phase I Study Evaluating WEE1 Inhibitor ZTP0990 As Monotherapy and in Combination With Gemcitabine, Cisplatin, or Carboplatin in Patients With Advanced Solid Tumors.J Clin Oncol. 2016;34(36):4371-43 80. ? 15. ?Sarah S, Yoni AGUDELO, Christy D, et al. Targeting p53 in vivo: a prdfq-kg-ttucf study with z43-vflfjbius compound APR-246 in refractory hematologic malignancies and prostate cancer.J Clin Oncol. 2012;30(29):3536329 9. ? 16. ?Keagan CANNON et al. TP53 Alterations Correlate with Response to VEGF/VEGFR Inhibitors: Implications for Targeted Therapeutics. Mol Cancer Ther. 2016 Oct;15(10):2478-248 5. ? 17. ?Kareen Reinoso et al. Identification of predictors of drug sensitivity using patient-derived models of esophageal squamous cell carcinoma. Nature communications. 2019 11; 10(1) (PubMed ID: [id number]) 18. ?Kellee Lawson et al. Abemaciclib Is Effective Against Pancreatic Cancer Cells and Synergizes with Phil and YAP1 Inhibition. Molecular cancer research : MCR. 2019 10; 17(10) (PubMed ID: [id number]) ? 19. ?Carlyle FUNEZ et al. Direct CDKN2 Modulation of CDK4 Alters Target Engagement of CDK4 Inhibitor Drugs. Molecular cancer therapeutics. 2019 04; 18(4) (PubMed ID: [id number]) ? 20. ?Awilda C et al. Patient-Derived Xenografts for Prognostication and Personalized Treatment for Head and Neck Squamous Cell Carcinoma. Cell reports. 2018 10; 25(5) (PubMed ID: [id number]) ? 21. ?Breezy Kern et al. Genomic Aberrations that Activate D-type Cyclins Are Associated with Enhanced Sensitivity to the CDK4 and CDK6 Inhibitor Abemaciclib. Cancer cell. 2017 Dec; 32(6) (PubMed ID: [id number]) Cutoffs for CNV interpretation: This applies to specimens with cellularity at d30% where deletions will be interpreted at d0.4 fold (deep deletion) change and copy number gains (CNVs) at d3 fold change (d6 copies). Shallow CNVs in low tumor cellularity cases (<30%) will be handled as clinically relevant and as it agrees with other variant frequencies identified within the specimen. DNA assay metrics: Pass Fragments with complete adaptors: 96.7% Fragments aligning to targets: 98.5% Unique starts sites per Gene-specific Primer: 255:1 Acceptable quality assurance lab technician metrics were determined to be: a minimum of 80% fragments with adaptors, 75% fragments aligned to targets, and 50:1 average unique start sites per gene specific (GSP2). RNA assay metrics: Pass Fragments with complete adaptors: 97.4% Fragments aligning to targets: 98% Unique starts sites per Gene-specific Primer: 86:1 Acceptable quality assurance lab technician metrics were determined to be: a minimum of 80% fragments with adaptors, 75% fragments aligned to targets, and 10:1 average unique start sites per gene specific (GSP2). n/12/03/2024 Electronically Signed Out ? KATHIE YORK MS, PhD, [facility] COMMENT Specimen Requirement: ??The assay requires FFPE-tissue blocks or slides with a minimum tumor cellularity of 10% (20% preferred). Decalcified specimens are not accepted. The assay is a combination of two custom-designed independent DNA and RNA assays developed in partnership with [employer]. ??The DNA-based arm is a multiplexed assay that simultaneously identifies variants (missense, nonsense, frameshift, and small insertions/deletion s) in 82 genes, 16 intergenic regions, and copy number variations (CNV) in 44 genes. ??The RNA-arm is a 137 gene RNA-based fusion NGS panel. The method: ??Total nucleic acid is extracted from microscopically identified tumor regions and then manually dissected from slides. ??The DNA and RNA assays use technologies developed by [employer] and validated by the Molecular Lab to run on the Illumina MiSeq/Dx system using the Illumina v2 reagents. ?? The DNA variantplex and the RNA fusionplex assays are multiplexed next generation sequencing assays that use Anchored Multiplex PCR (AMP) to generate target-enriched libraries in conjunction with the Illumina MiSeq v2 or v3 reagents. ?? AMP utilizes unidirectional gene-specific primers (GSPs) that enrich for both known and unknown mutations. ?? Adapters that contain both molecular barcodes and sample indices permit quantitative multiplex data analysis, read de-duplication and accurate mutation calling. ?? Generated fastq files and base calling is performed using [employer] software. ??Alignment and annotation is based on human genome build [GRCh37] and made using the DataRPM analysis pipeline v7.2.1. ?? Interpretation is based on any one or more of the following databases: COSMIC, OncoKB, cBioPortal, ClinVar, CKB -BOOST, 1000 Genomes, ExAc, Human Genome Mutation Database(HGMD), Mutation Taster, Mutation Car Sales Representative, and SIFT. ?? Targets Covered by the DNA assay: ?? SNPS and Indels: ??Select amplicons within the coding regions of the following genes are covered by this panel: ABL1, ABL1, AKT1, AKT2, AKT3, ALK, APC, AR, ARAF DOV, BRAF, BRCA1, BRCA2, CCNE1, CDH1, CDK4, CDKN2A, CSF1R, CTNNB1, DDR2, DICER1, EGFR, ERBB2, ERBB3, ERBB4, ESR1, EZH2, FBXW7, FGFR1, FGFR2, FGFR3, FOXL2, FLT3, GNA11, GNAQ,GNAS, H3F3A, HNF1A, HRAS, IDH1, IDH2, JAK2, JAK3, KDR, KIT, KRAS, MAPK1, MAP2K1, MAP2K4, MET, MLH1, MPL, MSH2, MSH6, NBN, NOTCH1, NPM1, NRAS, NTRK1, PDGRFA, PIK3CA, PIK3R1, POLE, POLD1, PTEN, PTPN11, RB1, RET, RHOA, ROS1, SDHB, SMAD4, SMARCB1, SMO, SRC,STK11, TERT, TP53, and VHL. Details of sequenced amplicons are available upon request. Copy Number Variations: Amplifications and deletions are assessed in the following 44 genes:ABL1, ALK,APC, DOV, AURKA,CCND1, CCNE1, CDH1, CDK4, CDKN2A, DDR2, EGFR, ERBB2, ERBB3, ERBB4, FBXW7, FGFR1, FGFR2, FGFR3, FLT3, GNAS, JAK2, JAK3, KDR, KIT, KRAS, MDM2, MET, MYC, MYCN, NOTCH1, NRAS, PDGFRA, PIK3CA, PIK3R1, PTEN, RB1, RET, SMAD4, SMARCB1, SMO, STK11, TP53, VHL Targets covered by the RNA assay: ACVR2A, AKT1, AKT2, AKT3, ALK, AR, LQEUCO27, ARHGAP6, TWYLA, BCOR, BRAF, BRD3, BRD4, CAMTA1, CCNB3, CCND1, CD274, CIC, CRTC1, CSF1, CSF1R, CTNNB1 ,DNAJB1, EGF, EGFR, EPC1, ERBB2, ERRB4, ERG, ESR1, ESRRA, ETV1, ETV4, ETV5, ETV6, EWSR1, FGF1, FGFR1, FGFR2, FGFR3, FGR, FOS, FOSB, FOXO1, FOXO4, FOXR2, FUS, GLI1, GRB7, HMGA2, HRAS, IDH1, IDH2 ,IGF1R ,INSR, JAK2, JAK3, JAZF1, KIT, KRAS, MAML2, MAP2K1, MAST1, MAST2, MBTD1, MDM2, MEAF6, MET, MGEA5, MKL2, MN1, MSMB, MUSK, MYB, MYBL1, MYC, MYOD1, NCOA1, NCOA2, NCOA3, NFATC2, NFE2L2, NFIB ,NOTCH1, NOTCH2, NR4A3, NRAS, NRG1, NTRK1, NTRK2, NTRK3, NUMBL, NUTM1, PAX3, PAX8, PDGFB, PDGFD, PDGFRA, PDGFRB, PHF1, PHKB, PIK3CA, PKN1, PLAG1, PPARG, PRDM10, PRKACA, PRKACB, PRKCA, PRKCB, PRKCD, PRKD1, PRKD2, PRKD3, RAD51B, RAF1, RELA, RET, ROS1, RSPO2, RSPO3, SS18, SS18L1, STAT6, TAF15, TCF12, TERT, TFE3, TFEB, TFG, THADA, TMPRSS2, USP6, VGLL2, WWTR1, YAP1, and YWHAE. Intended use of DNA assay: ??This assay is designed to identify acquired somatic variants, however in rare cases, germline variants may not be distinguishable from variants limited to the tumor. ??Attempts will be made to discriminate such variants based on estimated allele frequency and tumor cellularity, however referral to genetic counseling may be warranted, especially in the presence of personal and/or family history of related neoplasia. Intended use of RNA assay: ??The assay is designed to detect gene fusions in any of 137 genes covered by the panel. It also identifies the fusion partner genes with the possibility of detection of novel partner genes. Testing is performed to identify gene fusions that will qualify for treatment with FDA approved therapies, clinical trials and potential therapies. ??Results may also inform a specific diagnosis and may have prognostic significance. ??In rare cases, incidental potentially significant sequence variants may be detected. In rare circumstances, technical issues such as sequence variations at primer sites may result in false negative results. Reporting: DNA: The assay is intended to identify variants of strong or potential clinical significance (Tier I and Tier II), variants of unknown significance (Tier III) will be listed at the end of the report. ??Of note, classification of variants may be updated over time. ??Please contact the lab as appropriate. ??Benign or likely benign variants (Tier IV) will not be reported. ??Variants will be reported if present at an allelic frequency of d5%. Variants present at VAF < 5% may be reported in certain circumstances (e.g. EGFR T790M, low tumor cellularity). ??Copy number Variation (CNV) will be reported with a fold change metric representing an average of all clonal populations assessed. RNA: ??Reports will include any identified fusions and pertinent quality assurance lab technician metrics. The significance of any detected fusion is dependent on the specific clinicopathological features. Assay limits: Based on validation performed against standardized reference material with 100% concordance, the sensitivity of the assay for detection of single nucleotide variants (SNV) is estimated at >99% for variants present at least 1% of total DNA. ??However, sensitivity for deletions, duplications, complex indels, and splice site variants is expected to be somewhat lower. Although high level amplifications (d3 fold) were detected in all the validation samples, lower level amplifications/dupl ications may not be identified, or amplifications present in specimens of low cellularity (<40%). Similarly, homozygous/heterozy gous deletions may not be identified in samples of low cellularity (<40%). ?? Disclaimer: ??The solid tumor variantplex/DNA-bas ed and fusion panel/RNA-based panels were custom designed and developed by the Molecular Laboratory and [facility] in collaboration with [employer]. ??Both assays use Anchored Multiplex PCR (AMP) to generate target-enriched libraries and run on the MiSeq ([employer] Commerce NGS platform). ??The assay was validated for clinical use by the Molecular Pathology Lab at [facility]. ??It has not been cleared or approved by the US Food and Drug Administration. The FDA has determined that such clearance and approval is not necessary. This laboratory is certified under the Clinical Laboratory Improvement Amendment of 1988 (CLIA) as qualified to perform high complexity clinical laboratory testing. Laboratory Results and Interpretation by: Kathie York MS, PhD, [facility] Director, Molecular Pathology & Cytogenomics Dept. of Pathology & Laboratory Medicine [facility] Testing performed at: [facility], [address] [place] [address] ??[id number] ??[facility] Test performed at [place] ?[facility], [address] [place] [address], [address] [phone] ??[address] LAB 11/13/2024 11/22/2024 3:1 8 PM EST Comment:NGS Solid Tumor Comb ined Variant Plex and RNA Fusion Panel us Beau Hurt MD PATHOLOGY/CYTOLOGY ORDERABLES Final Result HOSPITAL LAB See Below * Pathology (11/13/2024 12:00 AM EST) Report Please See Procedures/Addenda Results Below [facility] HP-0254 ?? CLIA ID [id number] [address] [place] [address] ??[phone] Surgical Pathology Report PATIENT NAME: MAYKEL DE LA ROSA [facility] REC NUMBER: [id number] (AGE): 1955 (Age: 69) SPECIMEN NUMBER: [id number] DATE OBTAINED: 11/13/2024 DIAGNOSIS LEFT NECK MASS, CORE BIOPSY: ??POORLY-DIFFERENTIA AMANDA NON-SMALL CELL CARCINOMA. SEE COMMENT. ?? sc/11/15/2024 Electronically Signed Out ? 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 The current biopsy shows a poorly differentiated malignant neoplasm involving soft tissue. The tumor cells show positive immunoreactivity for CK AE1/AE3 (strong, diffuse) and CK20 (patchy), and negative immunoreactivity for CK7 and p40. The findings are consistent with the diagnosis of poorly-differentiate d non-small cell carcinoma with morphology and immunoprofile similar to the previous left neck tumor. 97978, 04913, 98101 x 3, 56594 The tests used in the work-up of this specimen may include Analyte-Specific Reagents (ASRs). ??The Immunopathology/[facility]ology Laboratories at [facility] have established the performance characteristics of these reagents. ??They have not been cleared or approved by the [place] Food and Drug Administration (FDA); however, the FDA has determined that such clearance or approval is not necessary for their use. ??All positive controls show appropriate reactivity. Pre-analytic variables such as prolonged/shortened ischemic, fixation, or decalcification times may limit assay performance. Clinical Information and History: pet avid left neck mass, history of non-small cell carcinoma of left hypopharynx Tissue(s) Submitted: A: 18 G CORE LEFT NECK MASS X 5 IN FORMALIN; 18 G CORE LEFT NECK MASS X 2 IN RPMI Gross Description: The specimen is received in formalin labeled per the requisition as 18G core left neck mass x 5 in formalin and consists of five capellan-white to red cores of soft tissue which range in size from 1.0 x 0.1 cm up to 1.8 x 0.1 cm. ??The cores are wrapped in lens paper and divided between cassettes A1-A2 (A1 three cores, A2 two cores). ??Additionally received labeled per the requisition as 18G core left neck mass x 2 in RPMI is processed in [facility] for future studies. ?? CG Microscopic Description: FLOW CYTOMETRY: Studies performed - CD3, CD4, CD5, CD7, CD8, CD10, CD16, CD19, CD20, CD38, CD45, CD56, kappa, lambda. ? By flow cytometry, most of the events acquired display the light scatter properties of erythrocytes, debris, and non-viable cells. ??Viable B cells are virtually undetectable. ??Too few viable B-cell events are present to permit the detection of a distinct light chain-restricted B-cell population. ??In summary, the immunophenotypic findings are non-diagnostic. ? This test was developed and its performance characteristics determined by the [facility] of [facility]. ??It has not been cleared or approved by the U.S. Food and Drug Administration. Procedures/Addenda: EXTERNAL REPORT ? Date Ordered: ? 11/28/2024 ? Status: Signed Out ?Date Complete: ? 11/28/2024 ? By: LUCAS SHAIKH, ? Date Reported: ? 11/29/2024 ? Interpretation Please see attached PDL1 report. Results-Comments {Not Entered} ? HOSPITAL LAB 11/13/2024 11/14/2024 7:0 5 AM EST Comment:18 G CORE LEFT NECK MASS X 5 IN FORMALIN; 18 G CORE LEFT NECK MASS X 2 IN RPMI-HOLD IN SP HEME us Kerri Canseco PA-C PATHOLOGY/CYTOLOGY ORD ERABLES Final Result HOSPITAL LAB See Below * Hemoglobin A1C with Estimated Average Glucose (11/11/2024 7:24 AM EST) Hemoglobin A1C 5.5 <5.7 % 11/11/2024 2:58 PM [facility] Comment: A1c% ? Interpretation 5.7 - 6.0 ?Increase risk of diabetes 6.1 - 6.4 ?Higher risk of diabetes > or = 6.5 ?? Consistent with diabetes Diabetes Care, 33(Supp 1):S1-S61, 2010 Estimated Average Glucose 111 mg/dL 11/11/2024 2:58 PM [facility] Blood specimen / Unknown 11/11/2024 7:24 AM EST 11/11/2024 8:01 AM EST us Brianna Ramos PA-C LAB BLOOD ORDERABLES Final R esult Performing Organization Address [facility] [place] [address], [place] [address] from Last 3 Months Insurance [facility] MEDICARE [facility] [employer] MGD MEDICARE Advance Directives * Full Code (Latest Code Status on File) Date Activated Date Inactivated Comments 11/09/2024 12:01 AM Question Answer Comments Decision Thoroughly Discussed with: Patient * Full Code Date Activated Date Inactivated Comments 08/17/2024 6:57 PM 08/25/2024 2:22 PM Care Teams Bacteriologist Fishery Relationship Specialty Start Date End Date Beau Hurt MD [address] [place] [address] PCP - General Medical Oncology 11/10/24 Rae Martin RN [address] [place] [address] Oncology Nurse Navigator 05/19/24
--- OUTSIDE RECORDS SUMMARY | 2025-02-08 13:08 | XMS_ITS | Encounter Summary ---
Author Organization [facility] Address [address] [place] [address] Care Team Providers Care Meat Molder Name Role Phone Jonn Jain MD Primary Care Provider [phone] [facility] Rae Machado RN Unavailable [phone] Pcp, No Primary Care Provider Unavailsisi e Beau Hurt MD Primary Care Provider [phone] Encounter Details Date Type Department Care Team (Late st Contact Info) Description 08/30/2024 [facility] Radiation Oncology [address] [place] [phone] Merlin Sarah MD [address] [place] [phone] Hypopharyngeal cancer (HCC) (Primary Dx) Social History Tobacco Use Types Packs/Day Years [...] Description 02/09/2025 2:40 PM EDT Hospital Encounter [address] [phone] Kayla Escobar, RUBINA [address] [place] [address] 02/09/2025 2:50 PM EDT Appointment [address] [phone] Kayla Escobar APRN [address] [place] [address] 02/16/2025 9:45 AM EDT Office Visit [facility] Medical Oncology at [address] [phone] Sherita Khan APRN [address] [place] [address] 02/16/2025 10:30 AM EDT Infusion [facility] Cancer [place] at [facility] Outpatient Infusion [address] [phone] Beau Hurt MD [address] [place] [phone] documented as of this encounter Goals Goal Patient Goal Type Associated Problems Recent Progress Patient-Stated? Author ST LTG 1 Speech Therapy No Arlen Valenzuela CCC-SLP Note: The patient will tolerate a least restrictive diet to maintain oral nutrition throughout radiation therapy. ST STG 1 Speech Therapy No Arlen Valenzuela CCC-ELECTRICAL TECHNICIAN INSTRUCTOR Note: The patient will complete pharyngeal strengthening [...] documented as of this encounter Visit Diagnoses Diagnosis Hypopharyngeal cancer (HCC)- Primary documented in this encounter Care Teams Meat Molder Relationship Specialty Start Date End Date Jonn Jain MD [address] [place] [address] PCP - General Family Medicine 05/18/24 10/30/24 Pcp, No PCP - General 10/31/24 11/09/24 Beau Hurt MD [address] [place] [address] PCP - General Medical Oncology 11/10/24 Rae Martin RN [address] [place] [address] Oncology Nurse Navigator 05/19/24 documented as of this encounter
== END 2025-02-08 13:09 | disposition home or self-care (01) ==
LOC: HO.HMCC 12:13
PROVIDERS: PCP Nurse Practitioner Family; Visit Provider Nurse Practitioner Family
DX: E11.9 Type 2 diabetes mellitus without complications (principal); C76.0 Malignant neoplasm of head, face and neck; Z13.9 Encounter for screening, unspecified

== ENCOUNTER → 2025-02-08 12:12 | Outpatient (BNVA) | payer MEDICARE, OTHER, SELFPAY | PROVIDERS: PCP Nurse Practitioner Family; Visit Provider Nurse Practitioner Family | DX: C76.0 Malignant neoplasm of head, face and neck (principal); L59.8 Other specified disorders of the skin and subcutaneous tissue related to radiation; B35.1 Tinea unguium; E11.9 Type 2 diabetes mellitus without complications; Z89.412 Acquired absence of left great toe; Z89.422 Acquired absence of other left toe(s) | CPT/HCPCS: 83036; 96127; 99212 ==